=== PATIENT | male | born 1985 | race Caucasian/White ===

== ENCOUNTER 2022-06-07 20:43 | Emergency (ER) | payer MEDICAID, SELFPAY ==
--- NOTE | ~2022-06-07 | US_ITS ---
EXAMINATION: US VENOUS ULTRASOUND WITH DOPPLER LOWER EXTREMITY, LEFT CLINICAL INFORMATION: Left lower extremity edema. History of DVT. COMPARISON: None available. TECHNIQUE: Ultrasound of the deep veins is performed from the hip to the calf with compression sonography and color and pulse Doppler assessment. Spectral analysis with color-flow imaging is performed. FINDINGS: There is normal venous compression and respiratory variation and augmented flow. The visualized common femoral vein, superficial femoral vein, profunda femoral vein, popliteal vein, and the trifurcation region shows no evidence of deep venous thrombosis. There is no significant popliteal fossa cyst. If the patient's symptoms persist, followup ultrasound in 5 days 7 days might be of value to exclude proximal propagation from a non-visualized calf vein. US/US venous duplex LE LT IMPRESSION: No DVT demonstrated in the left lower extremity.
[2022-06-07 20:58] VITALS: BP 137/74; PULSE 102; RESP 18; TEMP 36.9; O2SAT 96; BMI 25.6
[2022-06-07 21:07] VITALS: BP 123/62; PULSE 100; RESP 20; TEMP 37.1; O2SAT 97
--- NOTE | 2022-06-07 21:34 | ECG_ITS ---
Test Reason : WEAK Blood Pressure : / mmHG Vent. Rate : 099 BPM Atrial Rate : 099 BPM P-R Int : 124 ms QRS Dur : 074 ms QT Int : 320 ms P-R-T Axes : 071 088 -19 degrees QTc Int : 410 ms Normal sinus rhythm Cannot rule out Inferior infarct , age undetermined Abnormal ECG No previous ECGs available Referred By: Shawn Khalil Electronically Signed By:SERGIO PALACIOS MD
--- NOTE | 2022-06-07 21:35 | ED.GENADULT ---
HPI - General Adult General Chief complaint: General Medical Stated complaint: left leg swelling Time Seen by Provider: 06/07/22 20:59 Source: patient Mode of arrival: ambulatory Limitations: no limitations History of Present Illness HPI narrative: 36-year-old male with history of fentanyl and cocaine drug abuse presents with left lower extremity swelling and discomfort. 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 For last few days he was unable to charge his prosthetic. As result, he has been walking with a stiff leg. Today he went to detox for fentanyl use. Is noted that he had left lower extremity swelling. He was sent to the emergency department for evaluation. Patient denies any fevers or chills. Pain is [id number]. No clear relieving or exacerbating features. He denies any chest pain or shortness breath. Patient does have a history of DVT following the injury. He at 1 point had an IVC filter. Patient denies any new falls, injuries, immobilization Related Data Previous Rx's Medication Instructions Recorded doxycycline hyclate 100 mg capsule 100 mg PO BID #20 caps 06/07/22 Allergies Allergy/AdvReac Type Severity Reaction Status Date / Time No Known Allergies Allergy Verified 06/07/22 21:34 [facility] Social History Social History Advance Directives: No Advance Directives Information Provided: Yes Physical Exam ED Vital Signs: Vital Signs - 24 hr 06/07/22 20:58 06/07/22 21:07 06/07/22 23:29 Temperature 98.5 F 98.7 F 99.3 F Pulse Rate 102 H 100 97 Respiratory Rate 18 20 17 Blood Pressure 137/74 123/62 119/70 Pulse Oximetry 96 97 97 Oxygen Delivery Method Room Air Room Air Room Air BMI result Body Mass Index 25.6 GEN: Well developed, no acute distress, alert, oriented HEENT: Normocephalic, atraumatic, normal external ears, nose appears normal, no oropharyngeal edema or exudates Eyes: Normal to appearance Neck: Supple, no lymphadenopathy Respiratory: Talks in complete sentences, no respiratory distress, clear to auscultation bilaterally Cardiovascular: Regular rate and rhythm, no murmurs rubs or gallops Abdomen: Soft, nontender, nondistended, no guarding, no rebound Back: No CVA tenderness Extremities: Right lower extremity amputation with prosthetic, left lower extremity 2+ pitting edema mild erythematous skin changes, nontender to palpation Neurologic: No focal neurologic deficits, cranial nerves 2-12 intact, strength is 5/5 bilaterally, Skin: No rash Course Course Course Narrative: 36-year-old male with history of drug abuse presents with left lower extremity swelling. Patient denied any chest pain or shortness of breath. Doubt PE. He does have history of DVT which is a possible diagnosis. Will obtain an ultrasound. Patient is tachycardic. Will get an EKG. The likely this is sinus tachycardia. Is not hypoxic and he is normotensive. Patient denies any significant immobilization, trauma. 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 Patient denies any withdrawal symptoms at this time. Will withhold treatment for withdraw however, patient is aware he may be able to ask for medications if need be. Reevaluation(s) Reevaluation #1: The results are in. There is no evidence DVT. Suspect mild cellulitis. Will start patient on oral antibiotics. He is tachycardic which I suspect is a component of withdrawal. I after to keep the patient in the hospital overnight pending case management. He would like to be discharged however. He does have Ms. Decision-making capacity. Poses no acute threat to self or others. Patient will receive 1 dose oral antibiotics year Time: 23:46 Medical Decision Making Medical Decision Making MDM Narrative: 36-year-old male with history of drug abuse, PE, DVT, amputation presents with left lower extremity swelling. This is concerning for DVT. However, this could also be due to mechanical disadvantage walking since his mechanical prosthesis was not charged. Will obtain an ultrasound to rule out DVT. Other possible diagnoses could include renal dysfunction, hypoalbuminemia, electrolyte abnormality, traumatic, venous insufficiency Differential Diagnosis Differential Diagnoses: The differential diagnosis associated with the presentation includes (DVTrenal dysfunction, hypoalbuminemia, electrolyte abnormality, traumatic, venous insufficiency) Left lower extremity edema Admission/Observation Consideration of admission/observation: Escalation of care including admission/observation considered Lab Data [facility] Lab Attestation statement: I reviewed the patient's lab results. 06/07/22 21:57 06/07/22 21:57 Labs: Lab Results 03/24/23 03/24/23 03/24/23 Range/Units 21:52 21:57 21:57 WBC 9.5 (4.8-10.8) X10*3/uL RBC 5.99 H (4.60-5.80) X10*6/uL Hgb 14.3 (14.0-18.0) g/dl Hct 44.9 (42.0-52.0) % MCV 75.0 L (80.0-98.0) fL MCH 23.9 L (27.0-33.0) pg MCHC 31.8 (31.0-36.0) g/dl RDW 18.1 H (11.0-16.0) % Plt Count 187 (160-400) X10*3/uL MPV 9.5 (9.4-12.4) fL Immature Gran % (Auto) 0.2 (0.0-0.4) % Neut % (Auto) 73.0 (45-73) % Lymph % (Auto) 13.0 L (20-40) % [place] % (Auto) 12.2 H (2-11) % Eos % (Auto) 1.3 (0-4) % Baso % (Auto) 0.3 (0-2) % Lymph # (Auto) 1.2 (1.2-4.9) X10*3/uL [place] # (Auto) 1.2 (0.1-1.2) X10*3/uL Eos # (Auto) 0.1 (0.0-0.4) X10*3/uL Baso # (Auto) 0.0 (0.0-0.2) X10*3/uL Abs Immat Gran (auto) 0.02 (0.00-0.03) X10*3/uL Absolute Neuts (auto) 7.0 (2.0-8.3) x10*3/uL Absolute Nucleated RBC 0.000 (0.0-0.012) X10*3/uL Nucleated RBC % (auto) 0.0 (0.0-0.2) /100WBC ESR (0-15) MM/HR Sodium 142 (135-145) mmol/L Potassium 4.6 (3.3-5.1) mmol/L Chloride 102 (96-108) mmol/L Carbon Dioxide 29 (22-29) mmol/L Anion Gap 16 (12-20) BUN 15 (9-16) mg/dL Creatinine 1.24 (0.5-1.4) mg/dL Estim Creat Clear Calc 98.4 Estimated GFR > 60 Random Glucose 104 (60-115) mg/dL Lactic Acid (0.5-2.0) mmol/L Calcium 8.8 (8.4-10.2) mg/dL Total Bilirubin 0.6 (0.0-1.0) mg/dL AST 155 H (5-37) U/L ALT 59 H (0-40) U/L Alkaline Phosphatase 102 (39-117) U/L C-Reactive Protein 5.30 H (< or = 0.50) mg/dL Total Protein 6.4 L (6.5-8.0) g/dL Albumin 3.6 (3.5-5.0) g/dL COVID-19 (STEVE) Negative (Negative) COVID-19 Clin Com See Note 06/07/22 06/07/22 Range/Units 21:57 21:57 WBC (4.8-10.8) X10*3/uL RBC (4.60-5.80) X10*6/uL Hgb (14.0-18.0) g/dl Hct (42.0-52.0) % MCV (80.0-98.0) fL MCH (27.0-33.0) pg MCHC (31.0-36.0) g/dl RDW (11.0-16.0) % Plt Count (160-400) X10*3/uL MPV (9.4-12.4) fL Immature Gran % (Auto) (0.0-0.4) % Neut % (Auto) (45-73) % Lymph % (Auto) (20-40) % [place] % (Auto) (2-11) % Eos % (Auto) (0-4) % Baso % (Auto) (0-2) % Lymph # (Auto) (1.2-4.9) X10*3/uL [place] # (Auto) (0.1-1.2) X10*3/uL Eos # (Auto) (0.0-0.4) X10*3/uL Baso # (Auto) (0.0-0.2) X10*3/uL Abs Immat Gran (auto) (0.00-0.03) X10*3/uL Absolute Neuts (auto) (2.0-8.3) x10*3/uL Absolute Nucleated RBC (0.0-0.012) X10*3/uL Nucleated RBC % (auto) (0.0-0.2) /100WBC ESR 3 (0-15) MM/HR Sodium (135-145) mmol/L Potassium (3.3-5.1) mmol/L Chloride (96-108) mmol/L Carbon Dioxide (22-29) mmol/L Anion Gap (12-20) BUN (9-16) mg/dL Creatinine (0.5-1.4) mg/dL Estim Creat Clear Calc Estimated GFR Random Glucose (60-115) mg/dL Lactic Acid 1.3 (0.5-2.0) mmol/L Calcium (8.4-10.2) mg/dL Total Bilirubin (0.0-1.0) mg/dL AST (5-37) U/L ALT (0-40) U/L Alkaline Phosphatase (39-117) U/L C-Reactive Protein (< or = 0.50) mg/dL Total Protein (6.5-8.0) g/dL Albumin (3.5-5.0) g/dL COVID-19 (STEVE) (Negative) COVID-19 Clin Com Independent Interpretation I performed an independent interpretation of an: EKG (Normal sinus rhythm heart rate 99, normal intervals, no acute ST elevations or depressions, small Q-waves noted in the inferior leads) and Ultrasound (No DVT) Radiology Impression Discussion of test interpretation with radiology: I have reviewed the radiologist's reading. ( US/US venous duplex LE LT IMPRESSION: No DVT demonstrated in the left lower extremity. 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 There is no evidence of a blood clot in her leg. It is quite possibly have early cellulitis of the left leg. We will start on oral antibiotics and sent a prescription to your pharmacy. Should you develop any concerning symptoms, please return for re-evaluation. Prescriptions: New doxycycline hyclate 100 mg capsule 100 mg PO BID Qty: 20 0RF [place]: [facility] [place] [facility]] - 5 days
[2022-06-07 22:05] LABS: MANUAL DIFF FLAG NO
[2022-06-07 22:06] LABS: Basophils Percent Auto 0.3 % (0-2); Eosinophils Absolute Auto 0.1 X10*3/uL (0.0-0.4); Eosinophils Percent Auto 1.3 % (0-4); Hematocrit 44.9 % (42.0-52.0); Hemoglobin 14.3 g/dl (14.0-18.0); Imm Gran Abs Auto 0.02 X10*3/uL (0.00-0.03); Imm Gran Pct Auto 0.2 % (0.0-0.4); Lymphocytes Absolute Auto 1.2 X10*3/uL (1.2-4.9); Mean Corpuscular HGB Conc 31.8 g/dl (31.0-36.0); Mean Corpuscular Hemoglobin 23.9 pg (27.0-33.0); Mean Platelet Volume 9.5 fL (9.4-12.4); Monocytes Absolute Auto 1.2 X10*3/uL (0.1-1.2); Monocytes Percent Auto 12.2 % (2-11); Platelet Count 187 X10*3/uL (160-400); Red Blood Count 5.99 X10*6/uL (4.60-5.80); Red Cell Distribution Width 18.1 % (11.0-16.0); White Blood Count 9.5 X10*3/uL (4.8-10.8)
[2022-06-07 22:29] LABS: Lactic Acid 1.3 mmol/L (0.5-2.0)
[2022-06-07 22:35] LABS: COVID-19 Test Negative (Negative); IDNOW Serial# 55D5AD1C
--- NOTE | 2022-06-07 22:35 | PC.NURSE ---
ultrasound at bedside.
[2022-06-07 22:43] LABS: Alanine Aminotransferase 59 U/L (0-40); Albumin Level 3.6 g/dL (3.5-5.0); Alkaline Phosphatase 102 U/L (39-117); Anion Gap 16 (12-20); Aspartate Amino Transferase 155 U/L (5-37); Bilirubin Total 0.6 mg/dL (0.0-1.0); Blood Urea Nitrogen 15 mg/dL (9-16); Calcium 8.8 mg/dL (8.4-10.2); Carbon Dioxide 29 mmol/L (22-29); Chloride 102 mmol/L (96-108); Creatinine Clr Calc Pharmacy 98.4; Estimated Glomerular Filt Rate > 60; Glucose Random 104 mg/dL (60-115); Potassium 4.6 mmol/L (3.3-5.1); Sodium 142 mmol/L (135-145); Total Protein 6.4 g/dL (6.5-8.0)
[2022-06-07 23:07] LABS: Erythrocyte Sedimentation Rate 3 MM/HR (0-15)
[2022-06-07 23:29] VITALS: BP 119/70; PULSE 97; RESP 17; TEMP 37.4; O2SAT 97
[2022-06-08] MEDS: Doxycycline Monohydrate 100 MG CAPSULE PO (00:25)
--- NOTE | 2022-06-08 00:35 | PC.NURSE ---
Pt offered social work per Dr Khalil and pt declined. Pt states that the detox facility has discharged him. Explained to pt again that he can wait until the morning for social work and and again declines.
--- NOTE | 2022-06-08 00:56 | PC.NURSE ---
Large duffle bag labeled and given to security. Pt unable to carry.
== END 2022-06-08 00:56 | disposition home or self-care (01) ==
PROVIDERS: Emergency Provider Emergency Medicine
DX: R60.0 Localized edema (principal); L03.116 Cellulitis of left lower limb; R94.31 Abnormal electrocardiogram [ECG] [EKG]; Z20.822 Contact with and (suspected) exposure to COVID-19; Z20.828 Contact with and (suspected) exposure to other viral communicable diseases; Z79.899 Other long term (current) drug therapy
CPT/HCPCS: 36415; 80053; 83605; 85025; 85652; 86140; 87635; 93005; 93971; 99284

== ENCOUNTER 2022-06-09 00:48 | Inpatient (IN) | payer MEDICAID, SELFPAY ==
--- NOTE | ~2022-06-09 | CT_ITS ---
EXAMINATION: CT FEMUR WITH CONTRAST, RIGHT CLINICAL INFORMATION: Cellulitis. Prior amputation. COMPARISON: Radiographs from earlier today TECHNIQUE: Multidetector volumetric imaging of the right lower extremity performed after administration of 85 mL of Omnipaque 350 IV contrast. Coronal and sagittal reformatted images are obtained and reviewed. This CT examination was performed using dose optimization techniques as appropriate, variously including the following: *Automated exposure control *Adjustment of mA and/or kV according to patient size (this includes techniques or standardized protocols for targeted exams where dose is matched to indication/reason for exam; i.e. extremities or head) *Use of iterative reconstruction technique DLP: 274 mGy-cm FINDINGS: Amputation of the right femur at the level of the proximal diaphysis with some heterotopic ossification at the amputation site. This is well corticated. No acute fracture. The hip is well aligned. There is no acute osseous erosion at the amputation site. The visualized right hemipelvis is intact. There is significant edema in the subcutaneous tissues in the region of the stump, extending proximally over the hip and lower abdomen. There is associated skin thickening. No soft tissue gas identified. There is no fluid collection. No significant edema seen along the deep fascial planes, although the musculature at the level of the stump is somewhat ill-defined. CT/CT femur RT w IV con IMPRESSION: 1. Significant edema in the subcutaneous tissues in the region of the stump with associated skin thickening. No soft tissue gas. No fluid collection. 2. No acute osseous abnormality. No osseous erosion at the amputation site to suggest acute osteomyelitis.
--- NOTE | ~2022-06-09 | XR_ITS ---
EXAMINATION: XR HIP, RIGHT CLINICAL INFORMATION: Stomach infection COMPARISON: None available. TECHNIQUE: Two views of the right hip. FINDINGS: Status post amputation of the right lower extremity from the proximal femoral diaphysis. There is prominent soft tissue swelling with possible gas at the stump. Heterotopic ossification of the distal aspect of the bone. No acute osseous erosions are seen. The hip is appropriately aligned. No fracture. XR/XR hip RT min 2V IMPRESSION: Status post right lower extremity amputation with prominent soft tissue swelling and possible gas at the stump. No acute osseous erosions are seen.
[2022-06-09 00:53] VITALS: BP 145/81; PULSE 98; RESP 20; TEMP 36.6; O2SAT 98; BMI 25.7
--- NOTE | 2022-06-09 01:49 | ED_ITS ---
HPI - General Adult General Chief complaint: Extremity Problem Stated complaint: Right leg infected? Time Seen by Provider: 06/09/22 01:20 Source: patient Mode of arrival: ambulatory Limitations: no limitations History of Present Illness HPI narrative: 36-year-old male with history of intravenous drug abuse, AKA presents with infection of the stump. Patient is homeless. Patient has been unable to take his prosthesis out. Today was noted to have pain, 5/10 at its worse, redness and foul smelling drainage. The pain does not radiate. There has been no new trauma. Pain is sharp and burning in nature. Symptoms are worse with ambulation. They are better with rest. He has not had no fevers or chills. Last use of drugs was this morning. Related Data Previous Rx's Medication Instructions Recorded doxycycline hyclate 100 mg capsule 100 mg PO BID #20 caps 06/07/22 doxycycline hyclate 100 mg tablet 100 mg PO BID #20 tabs 06/08/22 Allergies Allergy/AdvReac Type Severity Reaction Status Date / Time No Known Allergies Allergy Verified 06/07/22 21:34 [facility] Social History Social History Advance Directives: No Advance Directives Information Provided: Yes Physical Exam ED Vital Signs: Vital Signs - 24 hr 06/09/22 00:53 06/09/22 03:24 Temperature 98 F 98.6 F Pulse Rate 98 97 Respiratory Rate 20 18 Blood Pressure 145/81 H 120/57 L Pulse Oximetry 98 96 Oxygen Delivery Method Room Air Room Air BMI result Body Mass Index 25.7 GEN: Well developed, no acute distress, alert, oriented HEENT: Normocephalic, atraumatic, normal external ears, nose appears normal, no oropharyngeal edema or exudates Eyes: Normal to appearance Neck: Supple, no lymphadenopathy Respiratory: Talks in complete sentences, no respiratory distress, clear to auscultation bilaterally Cardiovascular: Regular rate and rhythm, no murmurs rubs or gallops Abdomen: Soft, nontender, nondistended, no guarding, no rebound Back: No CVA tenderness Extremities: No clubbing cyanosis or edema Neurologic: No focal neurologic deficits, cranial nerves 2-12 intact, strength is 5/5 bilaterally, Skin: Right AKA stump, erythematous, foul-smelling serosanguineous drainage Course Course Course Narrative: 36-year-old male presents with possible stump infection. Patient is currently homeless. Has had difficulty taking off his prosthesis. Additionally, he has had difficulty charging his prosthesis given that he is homeless. As result, he has developed at least over the last 24 hours increasing pain, redness and foul smelling drainage. Exam is consistent with a stump infection. At this point, I doubt there is osteomyelitis. Will obtain an x-ray to rule this out. Will check laboratory tests including CBC, blood cultures, lactic acid, metabolic panel. Will give patient a dose of Ancef while in the emergency department as well. Reevaluation(s) Reevaluation #1: The workup is complete at this time. I will admit the patient for stump infecti on. Patient describes mild withdrawal symptoms. He is not wanting any medications at this time. Communicated with the hospitalist. Time: 03:44 Medications Administered Discontinued Medications Generic Name Dose Route Start Last Admin Trade Name Freq PRN Reason Stop Dose Admin Cefazolin Sodium 1 gm/ Sodium 50 mls @ 100 mls/hr 06/09/22 01:48 06/09/22 03:28 Chloride IV 06/09/22 02:17 Infused ONCE ONE Infusion Procedures EJ/Peripheral Line Arm R: Time Out Performed: Yes Skin Cleansed in Sterile Fashion: Yes Size (gauge): 20 IV Secured and Dressing Applied: Yes Patient Tolerated Procedure: well and no complications Medical Decision Making Medical Decision Making [facility] Narrative: 36-year-old male presents with possible stump infection. Patient is currently homeless. Has had difficulty taking off his prosthesis. Additionally, he has had difficulty charging his prosthesis given that he is homeless. As result, he has developed at least over the last 24 hours increasing pain, redness and foul smelling drainage. Exam is consistent with a stump infection. At this point, I doubt there is osteomyelitis. Will obtain an x-ray to rule this out. Will check laboratory tests including CBC, blood cultures, lactic acid, metabolic panel. Will give patient a dose of Ancef while in the emergency department as well. Differential Diagnosis Differential Diagnoses: The differential diagnosis associated with the presentation includes (Stump infection, cellulitis, abscess, osteomyelitis) Stump infection Admission/Observation Consideration of admission/observation: Escalation of care including admission/observation considered Lab Data [facility] Lab Attestation statement: I reviewed the patient's lab results. 06/09/22 02:38 06/09/22 02:34 Labs: Lab Results 06/09/22 06/09/22 06/09/22 Range/Units 02:34 02:34 02:38 WBC 9.3 (4.8-10.8) X10*3/uL RBC 5.59 (4.60-5.80) X10*6/uL Hgb 13.3 L (14.0-18.0) g/dl Hct 41.5 L (42.0-52.0) % MCV 74.2 L (80.0-98.0) fL MCH 23.8 L (27.0-33.0) pg MCHC 32.0 (31.0-36.0) g/dl RDW 17.2 H (11.0-16.0) % Plt Count 231 (160-400) X10*3/uL MPV 8.8 L (9.4-12.4) fL Immature Gran % (Auto) 0.4 (0.0-0.4) % Neut % (Auto) 71.2 (45-73) % Lymph % (Auto) 16.0 L (20-40) % [place] % (Auto) 10.6 (2-11) % Eos % (Auto) 1.4 (0-4) % Baso % (Auto) 0.4 (0-2) % Lymph # (Auto) 1.5 (1.2-4.9) X10*3/uL [place] # (Auto) 1.0 (0.1-1.2) X10*3/uL Eos # (Auto) 0.1 (0.0-0.4) X10*3/uL Baso # (Auto) 0.0 (0.0-0.2) X10*3/uL Abs Immat Gran (auto) 0.04 H (0.00-0.03) X10*3/uL Absolute Neuts (auto) 6.6 (2.0-8.3) x10*3/uL Absolute Nucleated RBC 0.000 (0.0-0.012) X10*3/uL Nucleated RBC % (auto) 0.0 (0.0-0.2) /100WBC ESR (0-15) MM/HR Sodium 140 (135-145) mmol/L Potassium 3.9 (3.3-5.1) mmol/L Chloride 100 (96-108) mmol/L Carbon Dioxide 28 (22-29) mmol/L Anion Gap 16 (12-20) BUN 16 (9-16) mg/dL Creatinine 1.07 (0.5-1.4) mg/dL Estim Creat Clear Calc 110.9 Estimated GFR > 60 Random Glucose 123 H (60-115) mg/dL Lactic Acid 1.1 (0.5-2.0) mmol/L Calcium 9.0 (8.4-10.2) mg/dL Total Bilirubin 0.7 (0.0-1.0) mg/dL AST 117 H (5-37) U/L ALT 62 H (0-40) U/L Alkaline Phosphatase 92 (39-117) U/L C-Reactive Protein 7.99 H (< or = 0.50) mg/dL Total Protein 5.9 L (6.5-8.0) g/dL Albumin 3.6 (3.5-5.0) g/dL // Range/Units 02:39 WBC (4.8-10.8) X10*3/uL RBC (4.60-5.80) X10*6/uL Hgb (14.0-18.0) g/dl Hct (42.0-52.0) % MCV (80.0-98.0) fL MCH (27.0-33.0) pg MCHC (31.0-36.0) g/dl RDW (11.0-16.0) % Plt Count (160-400) X10*3/uL MPV (9.4-12.4) fL Immature Gran % (Auto) (0.0-0.4) % Neut % (Auto) (45-73) % Lymph % (Auto) (20-40) % [place] % (Auto) (2-11) % Eos % (Auto) (0-4) % Baso % (Auto) (0-2) % Lymph # (Auto) (1.2-4.9) X10*3/uL [place] # (Auto) (0.1-1.2) X10*3/uL Eos # (Auto) (0.0-0.4) X10*3/uL Baso # (Auto) (0.0-0.2) X10*3/uL Abs Immat Gran (auto) (0.00-0.03) X10*3/uL Absolute Neuts (auto) (2.0-8.3) x10*3/uL Absolute Nucleated RBC (0.0-0.012) X10*3/uL Nucleated RBC % (auto) (0.0-0.2) /100WBC ESR 10 (0-15) MM/HR Sodium (135-145) mmol/L Potassium (3.3-5.1) mmol/L Chloride (96-108) mmol/L Carbon Dioxide (22-29) mmol/L Anion Gap (12-20) BUN (9-16) mg/dL Creatinine (0.5-1.4) mg/dL Estim Creat Clear Calc Estimated GFR Random Glucose (60-115) mg/dL Lactic Acid (0.5-2.0) mmol/L Calcium (8.4-10.2) mg/dL Total Bilirubin (0.0-1.0) mg/dL AST (5-37) U/L ALT (0-40) U/L Alkaline Phosphatase (39-117) U/L C-Reactive Protein (< or = 0.50) mg/dL Total Protein (6.5-8.0) g/dL Albumin (3.5-5.0) g/dL Independent Interpretation I performed an independent interpretation of an: Plain X-Ray Radiology Impression Discussion of test interpretation with radiology: I have reviewed the radiologist's reading. ([address] [id number] ReportSigned Patient: Ash BaileyMR#: [id number]: [id number]:[id number]/Sex: 36 / MADM Date: 06/09/22Loc: Bria Pandey: Ordering Physician: Shawn Khalil MD Date of Service: 06/09/22 Procedure(s): XR hip RT min 2V Accession) Radiologist Impression: I independently reviewed images and agree with radiologist interpretation Tests considered The following testing was considered but not selected: CT, MRI Prescription Management I considered prescription management with: Pain Medication and Antibiotic Social Determinants Patient?s care significantly limited by Social Determinants of Health including: Inadequate housing Discharge Plan Discharge Clinical Impression: Amputation stump infection Patient Disposition: Admitted As Inpatient Prescriptions: No Action doxycycline hyclate 100 mg capsule 100 mg PO BID Qty: 20 0RF doxycycline hyclate 100 mg tablet 100 mg PO BID Qty: 20 0RF
[2022-06-09 02:46] LABS: MANUAL DIFF FLAG NO
[2022-06-09 02:51] LABS: Basophils Percent Auto 0.4 % (0-2); Eosinophils Absolute Auto 0.1 X10*3/uL (0.0-0.4); Eosinophils Percent Auto 1.4 % (0-4); Hematocrit 41.5 % (42.0-52.0); Hemoglobin 13.3 g/dl (14.0-18.0); Imm Gran Abs Auto 0.04 X10*3/uL (0.00-0.03); Imm Gran Pct Auto 0.4 % (0.0-0.4); Lymphocytes Absolute Auto 1.5 X10*3/uL (1.2-4.9); Mean Corpuscular Hemoglobin 23.8 pg (27.0-33.0); Mean Corpuscular Volume 74.2 fL (80.0-98.0); Mean Platelet Volume 8.8 fL (9.4-12.4); Monocytes Percent Auto 10.6 % (2-11); Neutrophils Absolute Auto 6.6 x10*3/uL (2.0-8.3); Neutrophils Percent Auto 71.2 % (45-73); Platelet Count 231 X10*3/uL (160-400); Red Blood Count 5.59 X10*6/uL (4.60-5.80); Red Cell Distribution Width 17.2 % (11.0-16.0); White Blood Count 9.3 X10*3/uL (4.8-10.8)
[2022-06-09 03:05] LABS: Lactic Acid 1.1 mmol/L (0.5-2.0)
[2022-06-09 03:08] LABS: Alanine Aminotransferase 62 U/L (0-40); Albumin Level 3.6 g/dL (3.5-5.0); Alkaline Phosphatase 92 U/L (39-117); Anion Gap 16 (12-20); Aspartate Amino Transferase 117 U/L (5-37); Bilirubin Total 0.7 mg/dL (0.0-1.0); Blood Urea Nitrogen 16 mg/dL (9-16); C Reactive Protein 7.99 mg/dL (< or = 0.50); Carbon Dioxide 28 mmol/L (22-29); Chloride 100 mmol/L (96-108); Creatinine Clr Calc Pharmacy 110.9; Estimated Glomerular Filt Rate > 60; Glucose Random 123 mg/dL (60-115); Potassium 3.9 mmol/L (3.3-5.1); Sodium 140 mmol/L (135-145); Total Protein 5.9 g/dL (6.5-8.0)
[2022-06-09 03:24] VITALS: BP 120/57; PULSE 97; RESP 18; TEMP 37; O2SAT 96
[2022-06-09 03:29] LABS: Erythrocyte Sedimentation Rate 10 MM/HR (0-15)
--- NOTE | 2022-06-09 03:44 | PC.NURSE ---
Pt. is resting in bed, no apparent distress. Will continue to monitor.
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
[2022-06-09] MEDS: Enoxaparin Sodium 40 MG/0.4 ML SYRINGE SUBCUT (04:22)
[2022-06-09] MEDS: Lactated Ringers 1,000 ML 100 ML IVCONT (04:22)
[2022-06-09] MEDS: vancomycin HCL 1,500 MG in 0.9 % Sodium Chloride 500 ML 333.33 MG IV (04:23)
[2022-06-09] MEDS: iohexoL 350 MG/ML 100 ML INFUS..BTL 85 ML IV (04:23)
[2022-06-09 05:54] LABS: COVID-19 Test Negative (Negative); IDNOW Serial# 6674DD1D
[2022-06-09 06:11] LABS: Anion Gap 15 (12-20); Blood Urea Nitrogen 15 mg/dL (9-16); Calcium 8.2 mg/dL (8.4-10.2); Carbon Dioxide 25 mmol/L (22-29); Chloride 101 mmol/L (96-108); Creatinine Clr Calc Pharmacy 118.7; Estimated Glomerular Filt Rate > 60; Glucose Random 106 mg/dL (60-115); Potassium 3.7 mmol/L (3.3-5.1); Sodium 137 mmol/L (135-145)
[2022-06-09 06:12] VITALS: BP 122/74; PULSE 92; RESP 16; TEMP 36.9; O2SAT 97
--- NOTE | 2022-06-09 06:54 | PHA.PROG ---
Admission Date/Time: June 09, 2022 03:46 Indication: SKIN/STRUCTURE INFECTION Weight in k.718 kg Adjusted body weight in K.607 Steen body weight in K.2 Obesity Dosing Indication % IBW: 25.7 Serum Creatinine - Last 168 Hours 06/09/22 06/09/22 02:34 05:23 Creatinine 1.07 1.00 Estimated CrCl and GFR - Last 168 Hours 06/09/22 06/09/22 02:34 05:23 Estim Creat Clear Calc 110.9 118.7 Estimated GFR > 60 > 60 Vancomycin Loading Dose: 1500 MG Current Vancomycin Dosing Regimen: 1250 Q12 HOURS Vancomycin Monitoring using AUC goal of 400 - 600 range with trough as surrogate marker: EXPECT AUC OF 453 AFTER 4TH DOSE Date and Time for next Vancomycin Level to be drawn: 06/10 @1700 Pharmacist Comments on Vancomycin Plan: PT RENAL FUNCTION IS GOOD WITH SCR 1.00 TODAY. PT IS NOT OBESE. HE IS POST AMPUTATION WITH INFECTION OF AMPUTATION SITE. CONTINUE TO MONITOR SCR DAILY AND TROUGH BEFORE 4TH DOSE. Vancomycin dosing will take advantage of VISup as a clinical decision support tool that uses Bayesian modeling to calculate individual patient's pharmacokinetic parameters and forecast the patient's drug concentration time course with the target goal AUC 24 range of 400 - 600 mg/L/hr.
--- NOTE | 2022-06-09 07:18 | PHA.MEDREC ---
Pharmacy Consult ? Medication Reconciliation RN has completed the medication reconciliation, pharmacy reviewed.
--- NOTE | 2022-06-09 07:23 | PC.NURSE ---
Resumed care of patient this morning, he is resting comfortably in bed, denies pain. Report given to inpatient floor, transport to bring patient up shortly. Pt made aware of plan, and is in agreement. LR running per order in AC IV. He is a/ox4
[2022-06-09 07:59] VITALS: BP 141/64; PULSE 73; RESP 18; TEMP 35.5; O2SAT 99
[2022-06-09 09:15] LABS: Basophils Percent Auto 0.4 % (0-2); Eosinophils Absolute Auto 0.2 X10*3/uL (0.0-0.4); Eosinophils Percent Auto 2.3 % (0-4); Hematocrit 41.2 % (42.0-52.0); Imm Gran Abs Auto 0.03 X10*3/uL (0.00-0.03); Imm Gran Pct Auto 0.4 % (0.0-0.4); Lymphocytes Absolute Auto 1.4 X10*3/uL (1.2-4.9); Lymphocytes Percent Auto 18.5 % (20-40); Mean Corpuscular HGB Conc 31.6 g/dl (31.0-36.0); Mean Platelet Volume 8.9 fL (9.4-12.4); Monocytes Absolute Auto 0.8 X10*3/uL (0.1-1.2); Monocytes Percent Auto 10.4 % (2-11); Neutrophils Absolute Auto 5.3 x10*3/uL (2.0-8.3); Platelet Count 206 X10*3/uL (160-400); Red Blood Count 5.42 X10*6/uL (4.60-5.80); Red Cell Distribution Width 17.3 % (11.0-16.0); White Blood Count 7.8 X10*3/uL (4.8-10.8)
[2022-06-09 10:54] LABS: MANUAL DIFF FLAG NO
--- NOTE | 2022-06-09 11:54 | PM.EVENT ---
Event Note Date of Service: 06/09/22 Event Note: This patient is seen and examined hospitalist team this morning. stamp area pain/erythema . Lab reviewed Vitals stable , no fevers Physical exam : right aka -stamp-mild erythema and pain . No discharge or fluctuation and assessment and plan coordinated in APCs note, Agree with the plan in addition: right aka stamp cellulitis: continue iv antbiotics utox addiction consult lft's elevation? multifactorial: improving added hepatitis serologies. Time Spent With Patient Time: Total time managing care of this patient today ____ minutes.
[2022-06-09 12:51] LABS: Alanine Aminotransferase 54 U/L (0-40); Albumin Level 3.2 g/dL (3.5-5.0); Alkaline Phosphatase 85 U/L (39-117); Aspartate Amino Transferase 105 U/L (5-37); Bilirubin Direct 0.2 mg/dL (0.0-0.5); Bilirubin Total 0.7 mg/dL (0.0-1.0); Total Protein 5.4 g/dL (6.5-8.0)
[2022-06-09 15:26] VITALS: BP 130/66; PULSE 87; RESP 17; TEMP 36.1; O2SAT 98
[2022-06-09] MEDS: 0.9 % Sodium Chloride Flush 3 ML SYRINGE IVFLUSH (18:06)
[2022-06-09 20:00] VITALS: BP 136/79; PULSE 75; RESP 16; TEMP 36.4; O2SAT 96
--- NOTE | 2022-06-09 20:38 | PC.NURSE ---
Unable to insert IV,pt has no access,dr. Finney notified
--- NOTE | 2022-06-09 22:19 | PC.NURSE ---
ED staff unable to obtain IV access,ICU staff unable to come up to try,Nursing Wheel Assembler able to start IV now ,will administer IV Vanco as ordered
[2022-06-09] MEDS: vancomycin HCL 1,250 MG in 0.9 % Sodium Chloride 250 ML 166.67 MG IV (22:38)
[2022-06-10 03:59] VITALS: BP 138/79; PULSE 88; RESP 18; TEMP 36.4; O2SAT 97
[2022-06-10 04:31] LABS: HBS Num1 > 1000.00 mIU/mL (0-7.99); Hepatitis A Antibody IgM 0.19 Index (0-0.79); Hepatitis B Core Antibody Nonreactive (Nonreactive); Hepatitis B Surface Antigen Negative (Negative); ~HepC Num1 6.65 S/CO (0.00-0.79); ~Hepatitis A Antibody IgM Nonreactive (Nonreactive); ~Hepatitis B Surface Antibody REACTIVE (Nonreactive); ~Hepatitis C Antibody Reactive (Nonreactive)
[2022-06-10] MEDS: Enoxaparin Sodium 40 MG/0.4 ML SYRINGE SUBCUT (05:10)
[2022-06-10 07:04] VITALS: BP 148/80; PULSE 77; RESP 16; TEMP 36.6; O2SAT 99
[2022-06-10 08:18] LABS: Hematocrit 45.6 % (42.0-52.0); Hemoglobin 14.2 g/dl (14.0-18.0); Mean Corpuscular HGB Conc 31.1 g/dl (31.0-36.0); Mean Corpuscular Hemoglobin 23.7 pg (27.0-33.0); Mean Corpuscular Volume 76.3 fL (80.0-98.0); Mean Platelet Volume 9.2 fL (9.4-12.4); Platelet Count 225 X10*3/uL (160-400); Red Blood Count 5.98 X10*6/uL (4.60-5.80); White Blood Count 5.8 X10*3/uL (4.8-10.8)
[2022-06-10 08:47] LABS: Creatinine Clr Calc Pharmacy 130.4; Estimated Glomerular Filt Rate > 60
[2022-06-10 08:48] LABS: Anion Gap 12 (12-20); Blood Urea Nitrogen 12 mg/dL (9-16); Calcium 8.2 mg/dL (8.4-10.2); Carbon Dioxide 24 mmol/L (22-29); Chloride 106 mmol/L (96-108); Creatinine Clr Calc Pharmacy 133.4; Estimated Glomerular Filt Rate > 60; Glucose Random 91 mg/dL (60-115); Potassium 4.2 mmol/L (3.3-5.1); Sodium 138 mmol/L (135-145)
--- NOTE | 2022-06-10 09:51 | MHC.CLN ---
NUTRITION CONSULT FOR SKIN INTEGRITY. CELLULITIS TO Odalis PAGAN STUMP. SUSPECT HX POOR NUTRITION DUE TO IV DRUG ABUSE AND HOMELESS. ADDING ENSURE BID TO INCREASE NUTRITIONAL INTAKE. PROVIDES 700 KCALS, 40 G PROTEIN.
[2022-06-10] MEDS: vancomycin HCL 1,250 MG in 0.9 % Sodium Chloride 250 ML 166.67 MG IV (11:08)
[2022-06-10] MEDS: 0.9 % Sodium Chloride Flush 3 ML SYRINGE IVFLUSH (11:09)
--- NOTE | 2022-06-10 11:14 | HO.PM.IMPN ---
Subjective Subjective Date of Service: 06/10/22 Physical Exam Vital Signs: Vital Signs: Last Vital Signs Temp 98 F 06/10/22 07:04 Pulse 77 06/10/22 07:04 Resp 16 06/10/22 07:04 BP 148/80 H 06/10/22 07:04 Pulse Ox 99 06/10/22 07:04 O2 Del Method Room Air 06/10/22 07:04 BMI result Body Mass Index 25.7 Objective Data Active Medications Acetaminophen (Acetaminophen 325 Mg Tablet) 650 mg PO Q6H PRN PRN Reason: Pain, Mild (Pain Scale 1-3) Docusate Sodium (Docusate Sodium 100 Mg Capsule) 100 mg PO DAILY PRN PRN Reason: Constipation Enoxaparin Sodium (Enoxaparin Sodium 40 Mg/0.4 Ml Syringe) 40 mg SUBCUT Q24H [facility] Last Admin: 06/10/22 05:10 Dose: 40 mg Documented By: AIDAN Vancomycin HCl 1,250 mg/ (Sodium Chloride) 250 mls @ 166.667 mls/hr IV Q12H [facility] Last Admin: 06/10/22 11:08 Dose: 166.67 mls/hr Documented By: ANDREW Ondansetron HCl (Ondansetron Hcl 4 Mg/2 Ml Vial) 4 mg IVPUSH Q8H PRN PRN Reason: Nausea and Vomiting Pharmacy Consult (Consult Rx Vancomycin Dosing) 1 each MISCELLANE DAILY PRN PRN Reason: Consult order Sodium Chloride (0.9 % Sodium Chloride Flush 3 Ml Syringe) 3 ml IVFLUSH QSHIFT [facility] Last Admin: 06/10/22 11:09 Dose: 3 ml Documented By: ANDREW Labs 06/10/22 07:50 06/10/22 07:50 Labs: Laboratory Results - last 24 hr 06/09/22 06/09/22 06/09/22 05:23 05:23 08:54 MCV 76.0 L MCH 24.0 L MCHC 31.6 RDW 17.3 H Plt Count 206 MPV 8.9 L Immature Gran % (Auto) 0.4 Neut % (Auto) 68.0 Lymph % (Auto) 18.5 L [place] % (Auto) 10.4 Eos % (Auto) 2.3 Baso % (Auto) 0.4 Lymph # (Auto) 1.4 [place] # (Auto) 0.8 Eos # (Auto) 0.2 Baso # (Auto) 0.0 Abs Immat Gran (auto) 0.03 Absolute Neuts (auto) 5.3 Absolute Nucleated RBC 0.000 Nucleated RBC % (auto) 0.0 Anion Gap Estim Creat Clear Calc Estimated GFR Random Glucose Calcium Total Bilirubin 0.7 Direct Bilirubin 0.2 AST 105 H ALT 54 H Alkaline Phosphatase 85 Total Protein 5.4 L Albumin 3.2 L Hepatitis A IgM Ab Nonreactive Hep Bs Antigen Negative Hep Bs Antibody REACTIVE Hep B Core Total Ab Nonreactive Hepatitis C Ab (EIA) Reactive H 06/10/22 06/10/22 06/10/22 07:50 07:50 07:50 MCV 76.3 L MCH 23.7 L MCHC 31.1 RDW 18.0 H Plt Count 225 MPV 9.2 L Immature Gran % (Auto) Neut % (Auto) Lymph % (Auto) [place] % (Auto) Eos % (Auto) Baso % (Auto) Lymph # (Auto) [place] # (Auto) Eos # (Auto) Baso # (Auto) Abs Immat Gran (auto) Absolute Neuts (auto) Absolute Nucleated RBC 0.000 Nucleated RBC % (auto) 0.0 Anion Gap 12 Estim Creat Clear Calc 130.4 133.4 Estimated GFR > 60 > 60 Random Glucose 91 Calcium 8.2 L Total Bilirubin Direct Bilirubin AST ALT Alkaline Phosphatase Total Protein Albumin Hepatitis A IgM Ab Hep Bs Antigen Hep Bs Antibody Hep B Core Total Ab Hepatitis C Ab (EIA) Microbiology Microbiology Results: Microbiology 06/09/22 02:34 Blood Culture - Preliminary Blood - Venous No growth after 24 hours. 06/09/22 02:34 Blood Culture - Preliminary Blood - Venous No growth after 24 hours. Assessment and Plan (1) Cellulitis of lower extremity: Status: Acute Plan 36-year-old male with past medical history of IV drug use presents to the hospital with cellulitis of lower extremities Cellulitis of right stump/amputation stump infection. improving no drainage, no fluid collection evidence of edema on CT scan with no evidence of fluid collection/abscess continue IV antibiotics neg cultures IV drug use, Fentanyl feeling withdrawal symptoms addiction med consult pending DVT prophylaxis:? Lovenox Attending Dr. Cote continue hospital stay for tx of cellulitis Time Spent With Patient Time: Total time managing care of this patient today ____ minutes. Quality Stroke Does the patient have a stroke diagnosis?: No VTE Prior VTE?: No VTE Risk Level:: Medical - moderate - high VTE Device Contraindication: Treatment Not Indicated VTE Drug Contraindication: N/A - Med Ordered
--- NOTE | 2022-06-10 12:39 | MHC.CM.PN ---
PLAN IS FOR DC TODAY POSSIBLE BED AT [facility]. ADDICTION MED SAW PATIENT. CM AWAITING NOTE
[2022-06-10] MEDS: LORazepam 2 MG/ML VIAL 0.5 MG IVPUSH (13:52)
[2022-06-10] MEDS: methADONE HCl 20 MG/2 ML ORAL.CONC 25 MG PO (13:53)
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
[2022-06-10 15:44] VITALS: BP 137/82; PULSE 72; RESP 18; TEMP 36.2; O2SAT 98
[2022-06-10] MEDS: methADONE HCl 20 MG/2 ML ORAL.CONC 10 MG PO (18:20)
[2022-06-10] MEDS: LORazepam 2 MG/ML VIAL 1 MG IVPUSH ×2 (18:23→23:17)
[2022-06-10 19:29] VITALS: BP 150/77; PULSE 88; RESP 18; TEMP 36.9; O2SAT 97
--- NOTE | 2022-06-10 20:09 | PC.NURSE ---
Assumed care at 0700. Alert and oriented patient, reports struggling with homelessness and with IV drug use relapse with IV fentanyl, reports IVDU in many sites over body, denies sharing needles, reports having source for clean needles, reports wanting to stop using and start methadone, believes he will have success attending [facility] after discharge, reports withdrawal symptoms of anxiety, diaphoresis, malaise, MOTORCYCLE ASSEMBLER and addiction nurse notified, addiction med consulted, in to see patient, started methadone 25 mg ONE TIME DOSE, and one time IVP ativan 0.5 mg with good effect, then 4 hrs later patient sith same symptoms and seeking elopment, and MOTORCYCLE ASSEMBLER notified and new ONE TIME dose of 10 mg methadone as well as 1 mg IVP PRN ativan ordered and adminitered with good effect. Order for PO oxycodone patient questioned and discussed with MOTORCYCLE ASSEMBLER patient does not want opioid pain analgesia. Patient alert and oriented, ambulates with prosthesis to R AKA and uses wheelchair, able to shower and ambulate to BR this shift .
--- NOTE | 2022-06-10 23:11 | PC.NURSE ---
Lab unable to draw vanco trough, Dr. Gan notified. OK to give the vanco now and defer to AM for vanco trough.
--- NOTE | 2022-06-11 01:19 | PC.NURSE ---
No IV access. Refusing anymore attempts. Dr. Gan notified. IV vanco not given.
[2022-06-11 04:00] VITALS: BP 140/72; PULSE 75; RESP 18; TEMP 36.6; O2SAT 99
[2022-06-11] MEDS: Enoxaparin Sodium 40 MG/0.4 ML SYRINGE SUBCUT (05:04)
[2022-06-11 07:37] VITALS: BP 148/89; PULSE 89; RESP 18; TEMP 36.8; O2SAT 97
[2022-06-11 07:59] LABS: Creatinine Clr Calc Pharmacy 123.6; Estimated Glomerular Filt Rate > 60
[2022-06-11] MEDS: methADONE HCl 20 MG/2 ML ORAL.CONC 30 MG PO (08:56)
--- NOTE | 2022-06-11 10:13 | MHC.RECOVRN ---
Met with pt on 06/10 after consult placed to Addiction Medicine for fentanyl addiction. Pt laying in bed, awake, alert, easily engages in conversation. Pt appears restless, diaphoretic, reports loose stool, anxiety. Pt requesting methadone to address withdrawal symptoms. Pt reports using heroin, 3 bundles daily, IV, since February 06, 2022. Prior to that, pt had been in recovery x 1 year utilizing [facility] and meetings. Pt relocated to the area from [place] approx 1 week ago. Pt admitted to [facility] for cellulitis and IV antibiotics. Plan for 06/10- 25 mg methadone and 10 mg prn in the evening Plan for 06/11 30 mg methadone in am Pt is medically cleared to discharge and would like to go to [facility]. Spoke with María at [facility], pt accepted to [facility] for 1PM. Will be transported via Lyft. Provider aware.
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
--- NOTE | 2022-06-11 11:05 | MHC.CM.PN ---
Patient is discharged today. Addiction Medicine was consulted. The Recovery nurse has arranged for post hospital care. He is accepted @ [facility] . He will transport via Lyft at 1pm today.
== END 2022-06-11 13:54 | DRG 349 ==
LOC: HO.ED 03:44 → HO.EDOVER 04:31 → HO.S3 06:33
PROVIDERS: Internal Medicine; Admitting Provider Internal Medicine; Emergency Provider Emergency Medicine; Visit Provider Nurse Practitioner Acute Care
DX: T87.44 Infection of amputation stump, left lower extremity (principal); L03.115 Cellulitis of right lower limb; Z59.02 Unsheltered homelessness; F11.10 Opioid abuse, uncomplicated; Y83.5 Amputation of limb(s) as the cause of abnormal reaction of the patient, or of later complication, without mention of misadventure at the time of the procedure; Z20.822 Contact with and (suspected) exposure to COVID-19
CPT/HCPCS: 36415; 73502; 73701; 80048; 80053; 80076; 82565; 83605; 85025; 85027; 85652; 86140; 86704; 86706; 86709; 86803; 87040; 87340; 87635; 99285; J0690; J1650; J2060; J3371; Q9967

== ENCOUNTER 2022-08-12 12:43 | Emergency (ER) | payer MEDICAID, SELFPAY ==
[2022-08-12 12:49] VITALS: BP 150/78; PULSE 97; RESP 18; TEMP 36.6; O2SAT 98; BMI 24.5
--- NOTE | 2022-08-12 12:53 | ECG_ITS ---
Test Reason : dizziness Blood Pressure : / mmHG Vent. Rate : 094 BPM Atrial Rate : 094 BPM P-R Int : 126 ms QRS Dur : 088 ms QT Int : 358 ms P-R-T Axes : 069 076 008 degrees QTc Int : 447 ms Normal sinus rhythm with sinus arrhythmia Normal ECG When compared with ECG of 07-JUN-2022 21:46, No significant change was found Referred By: Vin Feliz Electronically Signed By:SERGIO PALACIOS MD
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
[2022-08-12 12:57] LABS: Glucose, Whole Blood 116 mg/dL (60-115)
[2022-08-12 13:09] LABS: MANUAL DIFF FLAG NO
[2022-08-12 13:10] LABS: Basophils Percent Auto 0.5 % (0-2); Eosinophils Absolute Auto 0.1 X10*3/uL (0.0-0.4); Eosinophils Percent Auto 0.8 % (0-4); Hematocrit 45.3 % (42.0-52.0); Hemoglobin 14.6 g/dl (14.0-18.0); Imm Gran Abs Auto 0.02 X10*3/uL (0.00-0.03); Imm Gran Pct Auto 0.3 % (0.0-0.4); Lymphocytes Absolute Auto 1.2 X10*3/uL (1.2-4.9); Lymphocytes Percent Auto 19.1 % (20-40); Mean Corpuscular HGB Conc 32.2 g/dl (31.0-36.0); Mean Corpuscular Hemoglobin 25.9 pg (27.0-33.0); Mean Corpuscular Volume 80.5 fL (80.0-98.0); Mean Platelet Volume 9.2 fL (9.4-12.4); Monocytes Absolute Auto 0.4 X10*3/uL (0.1-1.2); Monocytes Percent Auto 6.4 % (2-11); Neutrophils Absolute Auto 4.7 x10*3/uL (2.0-8.3); Neutrophils Percent Auto 72.9 % (45-73); Platelet Count 215 X10*3/uL (160-400); Red Blood Count 5.63 X10*6/uL (4.60-5.80); Red Cell Distribution Width 15.3 % (11.0-16.0); White Blood Count 6.4 X10*3/uL (4.8-10.8)
[2022-08-12 13:16] LABS: INTERNATIONAL NORM RATIO 1.4 (0.9-1.1); Prothrombin Time 16.8 SEC (10.0-13.1)
[2022-08-12 13:19] LABS: Partial Thromboplastin Time 28.8 SEC (26.0-36.4)
[2022-08-12 13:37] LABS: Alanine Aminotransferase 60 U/L (0-40); Albumin Level 4.1 g/dL (3.5-5.0); Alkaline Phosphatase 66 U/L (39-117); Anion Gap 16 (12-20); Aspartate Amino Transferase 85 U/L (5-37); Bilirubin Total 0.5 mg/dL (0.0-1.0); Blood Urea Nitrogen 16 mg/dL (9-16); Calcium 9.1 mg/dL (8.4-10.2); Carbon Dioxide 30 mmol/L (22-29); Chloride 103 mmol/L (96-108); Creatinine Clr Calc Pharmacy 89.7; Estimated Glomerular Filt Rate 59; Glucose Random 125 mg/dL (60-115); Potassium 3.8 mmol/L (3.3-5.1); Sodium 145 mmol/L (135-145); Total Protein 6.5 g/dL (6.5-8.0)
--- NOTE | 2022-08-12 14:00 | PC.NURSE ---
pt difficult stick, 3 unsuccessful attempts to insert iv. 20g iv inserted RAC via ultrasound guidance. pt tolerated well.
[2022-08-12] MEDS: 0.9 % Sodium Chloride 1,000 ML 999 ML IV ×3 (14:06→18:14)
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
[2022-08-12 15:50] VITALS: BP 107/43; PULSE 50; RESP 8; TEMP 36.4; O2SAT 97
--- NOTE | 2022-08-12 16:37 | MHC.RECOVSUP ---
Bed search still in process, [facility] Joy is taking over. Provider is aware.
--- NOTE | 2022-08-12 17:02 | MHC.RECOVSUP ---
? Reason for consult Recovery Support o Current location: ED04 o Identified substance use concern: heroin - Seeking ATS (detox) - Support ? Intervention: o ATS bed search Stated 430 still in process o Community resources provided o Harm reduction discussion ? Plan: o Patient to follow up with HF after discharge ? Additional information: Client seeking help getting into a ATS... Patient stated that he would love to go somewhere far from here.. Patient stated that he had a bed at the [facility] in [facility] I called the center but due to patient missing his intake on Friday Pa[facility] was put back on the waiting list... I call every detox on the list near and far but no bed at the moment.
[2022-08-12 17:51] LABS: Appearance Urine Clear; Color Urine Dark Yellow; Glucose Urine UA Negative (Negative); Leukocyte Esterase Urine Negative (Negative); Nitrite Urine Negative (Negative); Specific Gravity - Urine >= 1.030 (1.005-1.025); UMIC TRIGGER UACC YES; Urine Blood Negative (Negative); Urine Ketones Trace mg/dL (Negative); Urine Protein 30 (1+) mg/dL (Neg-Trace)
[2022-08-12 17:53] LABS: Bacteria Urine None Seen (None Seen); Hyaline Casts Urine 0-2 /LPF (0-2); RBC Urine 0-2 /HPF (0-2); Squamous Epithelial Cell Urine 0-2 /HPF (0-2); WBC Urine 0-5 /HPF (0-5)
--- NOTE | 2022-08-12 18:03 | PC.NURSE ---
pt's HR 41-47, pt continues to c/o of dizziness, denies headache. iv fluids given, labs drawn as documented. pt seen by [employer] Operator. LOIS Rios at bedside.
[2022-08-12 18:08] LABS: Amphetamine Screen Urine Not Detected (Not Detect); Barbiturates, Urine Not Detected (Not Detect); Benzodiazepines Screen Urine Not Detected (Not Detect); Cannabinoid Screen Urine Not Detected (Not Detect); Cocaine Screen Urine POSITIVE (Not Detect); Fentanyl, urine POSITIVE (Not Detect); Opiate Screen Urine POSITIVE (Not Detect); Phencyclidine Screen Urine Not Detected (Not Detect)
[2022-08-12 19:45] VITALS: BP 101/49; PULSE 47; RESP 12; TEMP 36.4; O2SAT 98
[2022-08-12 22:12] VITALS: BP 97/51; PULSE 43; RESP 14; TEMP 36.8; O2SAT 97
== END 2022-08-12 22:54 | disposition home or self-care (01) ==
PROVIDERS: Physician Assistant; Emergency Provider Emergency Medicine
DX: M62.82 Rhabdomyolysis (principal); R42 Dizziness and giddiness; I49.8 Other specified cardiac arrhythmias; F14.90 Cocaine use, unspecified, uncomplicated; Z79.899 Other long term (current) drug therapy
CPT/HCPCS: 36415; 80053; 80307; 81001; 82550; 82947; 84484; 85025; 85610; 85730; 93005; 96360; 96361; 99285

== ENCOUNTER 2022-08-19 18:35 | Emergency (ER) | payer MEDICAID, SELFPAY ==
[2022-08-19 19:01] VITALS: BP 190/93; PULSE 104; O2SAT 97
== END 2022-08-19 20:47 | disposition left against medical advice (07) ==
PROVIDERS: Emergency Provider Emergency Medicine
DX: F19.10 Other psychoactive substance abuse, uncomplicated (principal)

== ENCOUNTER 2022-08-21 01:20 | Emergency (ER) | payer MEDICAID, SELFPAY ==
--- NOTE | 2022-08-21 | ECG_ITS ---
Test Reason : SYNCOPE Blood Pressure : / mmHG Vent. Rate : 041 BPM Atrial Rate : 041 BPM P-R Int : 130 ms QRS Dur : 086 ms QT Int : 516 ms P-R-T Axes : 081 076 046 degrees QTc Int : 425 ms Marked sinus bradycardia with Premature supraventricular complexes Nonspecific ST and T wave abnormality Abnormal ECG When compared with ECG of 12-AUG-2022 12:53, Premature supraventricular complexes are now Present Vent. rate has decreased BY 53 BPM T wave inversion now evident in Anterior leads Referred By: Generic ED Physician Electronically Signed By:Riccardo Muñoz
[2022-08-21 01:22] VITALS: BP 132/74; PULSE 44; TEMP 36.4; O2SAT 100; BMI 25.0
[2022-08-21 02:19] LABS: Basophils Percent Auto 0.7 % (0-2); Eosinophils Absolute Auto 0.1 X10*3/uL (0.0-0.4); Eosinophils Percent Auto 1.5 % (0-4); Hemoglobin 14.7 g/dl (14.0-18.0); Imm Gran Abs Auto 0.01 X10*3/uL (0.00-0.03); Imm Gran Pct Auto 0.2 % (0.0-0.4); Lymphocytes Absolute Auto 1.4 X10*3/uL (1.2-4.9); Lymphocytes Percent Auto 25.7 % (20-40); MANUAL DIFF FLAG NO; Mean Corpuscular Hemoglobin 25.2 pg (27.0-33.0); Mean Corpuscular Volume 78.9 fL (80.0-98.0); Mean Platelet Volume 9.2 fL (9.4-12.4); Monocytes Absolute Auto 0.7 X10*3/uL (0.1-1.2); Monocytes Percent Auto 12.7 % (2-11); Neutrophils Absolute Auto 3.2 x10*3/uL (2.0-8.3); Neutrophils Percent Auto 59.2 % (45-73); Platelet Count 182 X10*3/uL (160-400); Red Blood Count 5.83 X10*6/uL (4.60-5.80); Red Cell Distribution Width 15.4 % (11.0-16.0); White Blood Count 5.5 X10*3/uL (4.8-10.8)
[2022-08-21 02:39] LABS: Alanine Aminotransferase 75 U/L (0-40); Albumin Level 3.8 g/dL (3.5-5.0); Alkaline Phosphatase 83 U/L (39-117); Anion Gap 13 (12-20); Aspartate Amino Transferase 100 U/L (5-37); Bilirubin Total 0.4 mg/dL (0.0-1.0); Blood Urea Nitrogen 14 mg/dL (9-16); Calcium 9.1 mg/dL (8.4-10.2); Carbon Dioxide 27 mmol/L (22-29); Chloride 106 mmol/L (96-108); Creatinine Clr Calc Pharmacy 116.2; Estimated Glomerular Filt Rate > 60; Glucose Random 80 mg/dL (60-115); Potassium 4.4 mmol/L (3.3-5.1); Sodium 142 mmol/L (135-145); Total Protein 6.4 g/dL (6.5-8.0)
[2022-08-21 05:35] VITALS: BP 103/60; PULSE 46; RESP 16; TEMP 36.3; O2SAT 97
--- NOTE | 2022-08-21 06:20 | PC.NURSE ---
Multiple attempts to place IV line. Patient in pain, and refused additional attempts. State he is going through withdrawal from opiates and is considering leaving AMA. Has increased sensitivity to pain currently. This RN notified provider
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
[2022-08-21 07:42] LABS: Troponin-I High Sensitivity < 2.7 ng/L (<3.5-35.0)
[2022-08-21] MEDS: 0.9 % Sodium Chloride 1,000 ML 999 ML IV ×2 (10:26→11:48)
[2022-08-21 10:31] VITALS: BP 109/55; PULSE 52; RESP 14; TEMP 36.5; O2SAT 97
[2022-08-21 11:05] LABS: Troponin-I High Sensitivity < 2.7 ng/L (<3.5-35.0)
[2022-08-21 14:28] LABS: Anion Gap 9 (12-20); Blood Urea Nitrogen 13 mg/dL (9-16); Calcium 8.4 mg/dL (8.4-10.2); Carbon Dioxide 27 mmol/L (22-29); Chloride 108 mmol/L (96-108); Creatinine Clr Calc Pharmacy 140.2; Estimated Glomerular Filt Rate > 60; Glucose Random 94 mg/dL (60-115); Potassium 4.3 mmol/L (3.3-5.1); Sodium 140 mmol/L (135-145)
--- NOTE | 2022-08-21 15:42 | MHC.RECOVRN ---
Checked on pt x3 throughout the day, pt sleeping each time. Did not appear to be in withdrawal or uncomfortable.
== END 2022-08-21 14:36 | disposition left against medical advice (07) ==
PROVIDERS: Registered Nurse Emergency; Emergency Provider Emergency Medicine Emergency Medical Services
DX: R74.8 Abnormal levels of other serum enzymes (principal); M79.672 Pain in left foot; R00.1 Bradycardia, unspecified; F19.10 Other psychoactive substance abuse, uncomplicated; Z89.611 Acquired absence of right leg above knee
CPT/HCPCS: 36415; 80048; 80053; 82550; 84484; 85025; 93005; 96360; 96361; 99285

== ENCOUNTER 2022-08-26 15:30 | Inpatient (IN) | payer MEDICAID, OTHER, SELFPAY ==
[2022-08-26 15:49] VITALS: BP 130/67; PULSE 55; RESP 18; TEMP 36.4; O2SAT 96; BMI 23.7
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
--- NOTE | 2022-08-26 15:52 | ECG_ITS ---
Test Reason : general medical Blood Pressure : / mmHG Vent. Rate : 057 BPM Atrial Rate : 057 BPM P-R Int : 132 ms QRS Dur : 080 ms QT Int : 458 ms P-R-T Axes : 071 083 039 degrees QTc Int : 445 ms Sinus bradycardia Nonspecific ST and T wave abnormality Abnormal ECG When compared with ECG of 21-AUG-2022 05:32, Nonspecific T wave abnormality, worse in Lateral leads Referred By: Dory Young Electronically Signed By:SERGIO PALACIOS MD
--- NOTE | 2022-08-26 16:37 | PHA.MEDREC ---
Pharmacy Consult ? Medication Reconciliation Pharmacy has completed the medication reconciliation. Spoke to patient to confirm meds. Patient no longer takes gabapentin, only bupropion 300mg XR.
--- NOTE | 2022-08-26 16:49 | PC.NURSE ---
pt AOX4, reporting SI with plan. pt attempted top use the rest of the fentanyl that he had. 1:[address], labs drawn and EKG done. awaiting urine sample. pt changed over to hospital attire.
[2022-08-26 16:57] LABS: Ethanol < 10 mg/dL
[2022-08-26 16:58] LABS: Basophils Absolute Auto 0.1 X10*3/uL (0.0-0.2); Basophils Percent Auto 0.8 % (0-2); Eosinophils Absolute Auto 0.1 X10*3/uL (0.0-0.4); Eosinophils Percent Auto 1.4 % (0-4); Hematocrit 46.2 % (42.0-52.0); Hemoglobin 14.7 g/dl (14.0-18.0); Imm Gran Abs Auto 0.02 X10*3/uL (0.00-0.03); Imm Gran Pct Auto 0.3 % (0.0-0.4); Lymphocytes Absolute Auto 1.4 X10*3/uL (1.2-4.9); Lymphocytes Percent Auto 24.1 % (20-40); MANUAL DIFF FLAG SCAN; Mean Corpuscular HGB Conc 31.8 g/dl (31.0-36.0); Mean Corpuscular Hemoglobin 25.6 pg (27.0-33.0); Mean Corpuscular Volume 80.3 fL (80.0-98.0); Mean Platelet Volume 10.1 fL (9.4-12.4); Monocytes Absolute Auto 0.6 X10*3/uL (0.1-1.2); Monocytes Percent Auto 10.8 % (2-11); NRBC Pct Auto 0.3 /100WBC (0.0-0.2); Neutrophils Absolute Auto 3.7 x10*3/uL (2.0-8.3); Neutrophils Percent Auto 62.6 % (45-73); PLT CLUMP 1; Red Blood Count 5.75 X10*6/uL (4.60-5.80); Red Cell Distribution Width 15.9 % (11.0-16.0); SCAN SMEAR FLAG 1
[2022-08-26 16:59] LABS: Alanine Aminotransferase 75 U/L (0-40); Alkaline Phosphatase 91 U/L (39-117); Anion Gap 15 (12-20); Aspartate Amino Transferase 113 U/L (5-37); Bilirubin Direct 0.2 mg/dL (0.0-0.5); Bilirubin Total 0.8 mg/dL (0.0-1.0); Blood Urea Nitrogen 22 mg/dL (9-16); Calcium 9.2 mg/dL (8.4-10.2); Carbon Dioxide 25 mmol/L (22-29); Chloride 102 mmol/L (96-108); Estimated Glomerular Filt Rate > 60; Glucose Random 115 mg/dL (60-115); Magnesium 2.2 mg/dL (1.6-2.6); Potassium 3.8 mmol/L (3.3-5.1); Sodium 138 mmol/L (135-145); Total Protein 6.5 g/dL (6.5-8.0)
[2022-08-26 17:11] LABS: COVID-19 Test Negative (Negative); IDNOW Serial# 9DB6401D
[2022-08-26 17:19] LABS: Platelet Count 113 X10*3/uL (160-400); White Blood Count 5.9 X10*3/uL (4.8-10.8)
[2022-08-26 17:20] LABS: SLIDE REVIEW VERIFIED
--- NOTE | 2022-08-26 18:46 | PC.NURSE ---
Pt reports IV Heroin use for over 20 yeas. Claims he used 8 bags this AM. No skin impairment noted.
[2022-08-26 19:38] LABS: Appearance Urine Clear; Color Urine Dark Yellow; Glucose Urine UA Negative (Negative); Leukocyte Esterase Urine Negative (Negative); Nitrite Urine Negative (Negative); Specific Gravity - Urine >= 1.030 (1.005-1.025); UMIC TRIGGER UA YES; Urine Blood Negative (Negative); Urine Ketones Trace mg/dL (Negative); Urine Protein 100 (2+) mg/dL (Neg-Trace)
[2022-08-26 19:43] LABS: Bacteria Urine None Seen (None Seen); Hyaline Casts Urine 0-2 /LPF (0-2); RBC Urine 0-2 /HPF (0-2); Squamous Epithelial Cell Urine 0-2 /HPF (0-2); WBC Urine 0-5 /HPF (0-5)
[2022-08-26 19:49] LABS: Amphetamine Screen Urine Not Detected (Not Detect); Barbiturates, Urine Not Detected (Not Detect); Benzodiazepines Screen Urine Not Detected (Not Detect); Cannabinoid Screen Urine POSITIVE (Not Detect); Cocaine Screen Urine POSITIVE (Not Detect); Fentanyl, urine POSITIVE (Not Detect); Opiate Screen Urine POSITIVE (Not Detect); Phencyclidine Screen Urine Not Detected (Not Detect)
[2022-08-26 20:41] VITALS: BP 115/57; PULSE 57; RESP 16; TEMP 36.6; O2SAT 100
--- NOTE | 2022-08-27 05:49 | PC.NURSE ---
Patient slept through the night, no distress observed/reported, behavior non concerning, ambulates independently with right prosthetic leg, care consult ordered/pending evaluation, placed on section 12 by ED provider for suicidality, med rec completed/pending provider's approval, VSS, labs completed/resulted, will continue to monitor.
[2022-08-27 06:14] VITALS: BP 118/78; PULSE 45; RESP 16; TEMP 36.2; O2SAT 99
--- NOTE | 2022-08-27 07:42 | PC.NURSE ---
pt here for si w plan to overdose intentionally using street drugs. hx of polysubstance/ivda. awaiting care team consult. pt is sleeping in bed att, rr even/unlabored. breakfast tray left at bedside. wctm for s/s withdrawal/dc needs.
[2022-08-27 09:05] VITALS: BP 127/59; PULSE 56; RESP 16; TEMP 36.9; O2SAT 97
--- NOTE | 2022-08-27 09:56 | PC.NURSE ---
evaluated by care team
--- NOTE | 2022-08-27 11:03 | MHC.CARE ---
Patient evaluated by the CARE Team to need inpatient psychiatric treatment, he is voluntary for this and not on a Section 12A. Written assessment to follow. ED provider, Dr Biggs updated
--- NOTE | 2022-08-27 15:58 | MHC.RECOVRN ---
This policy writer sales met with patient x's 2. No visible signs of withdrawal, pt resting comfortably during this writers questions. Pt resting comfortably according to ED RN. Pt reports last use [employer]INTE[employer]CE [employer] 7 bags IV heroin. Pt reports goal of abstienence, pt not interested in MAT for opiate use. Pt states would be interested in a small dose of MTD for a few days to manage withdrawal s/s . Provider Daphne Silva aware.
[2022-08-27] MEDS: LORazepam 1 MG TABLET 2 MG PO (16:53)
[2022-08-28] VITALS (7 sets, daily range): BP systolic 114–137; BP diastolic 54–85; PULSE 53–89; RESP 16; TEMP 36.6–37.1; O2SAT 98–99
--- NOTE | 2022-08-28 00:08 | ECG_ITS ---
Test Reason : cocaine use, ekg changes Blood Pressure : / mmHG Vent. Rate : 062 BPM Atrial Rate : 062 BPM P-R Int : 132 ms QRS Dur : 086 ms QT Int : 412 ms P-R-T Axes : 053 074 009 degrees QTc Int : 418 ms Normal sinus rhythm with sinus arrhythmia Normal ECG When compared with ECG of 26-AUG-2022 16:16, ST elevation now present in Anterior leads T wave inversion no longer evident in Anterior leads Referred By: Mehul Rivas Electronically Signed By:SERGIO PALACIOS MD
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
[2022-08-28] MEDS: Gabapentin 300 MG CAPSULE PO ×3 (09:14→21:07)
[2022-08-28] MEDS: cloNIDine HCL 0.1 MG TABLET PO ×3 (09:29→21:15)
[2022-08-28 10:14] LABS: Alanine Aminotransferase 50 U/L (0-40); Albumin Level 3.6 g/dL (3.5-5.0); Alkaline Phosphatase 78 U/L (39-117); Anion Gap 10 (12-20); Aspartate Amino Transferase 43 U/L (5-37); Bilirubin Total 0.6 mg/dL (0.0-1.0); Blood Urea Nitrogen 12 mg/dL (9-16); Calcium 9.1 mg/dL (8.4-10.2); Carbon Dioxide 26 mmol/L (22-29); Chloride 104 mmol/L (96-108); Cholesterol 136 mg/dL; Creatinine Clr Calc Pharmacy 141.9; Estimated Glomerular Filt Rate > 60; Glucose Fasting 113 mg/dL (60-99); HDL Cholesterol 35 mg/dL; LDL Cholesterol Calculated 84 mg/dl; Potassium 3.4 mmol/L (3.3-5.1); Sodium 137 mmol/L (135-145); Total Protein 6.3 g/dL (6.5-8.0); Triglycerides 89 mg/dL
[2022-08-28] MEDS: hydrOXYzine HCL 25 MG TABLET PO (11:51)
[2022-08-28] MEDS: Acetaminophen 325 MG TABLET 650 MG PO (11:51)
[2022-08-28] MEDS: Nicotine Polacrilex 2 MG GUM BUCCAL (11:51)
[2022-08-28] MEDS: LORazepam 1 MG TABLET PO ×3 (12:30→21:08)
[2022-08-28] MEDS: methADONE HCl 20 MG/2 ML ORAL.CONC 30 MG PO (14:29)
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
--- NOTE | 2022-08-28 16:12 | MHC.RECOVRN ---
Met with pt in 308 after pt received 30 mg methadone. Pt laying in bed, eyes closed, wakes to voice. Pt appears restless, diaphoretic. Pt reports methadone has helped but continues to feel hot/cold flashes and anxiety. Pt requesting additional methadone and to stay on it for a couple days. Denies other questions or concerns. Discussed with Daphne Silva APRN. Will continue to follow.
--- NOTE | 2022-08-28 16:27 | PM.EVENT ---
Event Note Date of Service: 08/28/22 Event Note: Addiction consult placed for patient considering suboxone Patient seen very briefly in room 508. Laying under blankets, room with a very strong odor. Patient reports feeling very sick, experiencing withdrawal sx. Visibly uncomfortable. Methadone X1 ordered. sintering plant supervisor checked in following med administration, and patient reported positive effect. However still experiencing restlessness and diaphoretic. Requesting to stay on methadone for now Plan: additional 10mg methadone tonight methadone 45mg in AM follow up in AM to obtain ABENA history and develop treatment plan with patient Time Spent With Patient Time: Total time managing care of this patient today ____ minutes.
[2022-08-28] MEDS: Loperamide HCl 2 MG CAPSULE PO (17:32)
[2022-08-28] MEDS: methADONE HCl 20 MG/2 ML ORAL.CONC 10 MG PO (17:32)
[2022-08-29 07:00] VITALS: BMI 25.0
[2022-08-29 08:00] VITALS: PULSE 76
[2022-08-29 08:42] VITALS: BP 125/60; PULSE 91; RESP 16; TEMP 36.6; O2SAT 97
[2022-08-29] MEDS: Gabapentin 300 MG CAPSULE PO ×2 (09:06→14:19)
[2022-08-29] MEDS: methADONE HCl 20 MG/2 ML ORAL.CONC 45 MG PO (09:07)
[2022-08-29] MEDS: Acetaminophen 325 MG TABLET 650 MG PO (10:12)
[2022-08-29] MEDS: Nicotine Polacrilex 2 MG GUM BUCCAL ×2 (10:13→14:31)
[2022-08-29 12:00] VITALS: BP 128/66; O2SAT 97
--- NOTE | 2022-08-29 12:46 | MHC.RECOVRN ---
Met with pt in 508 to follow up after receiving 45 mg methadone this morning. Pt laying in bed, being interviewed by SW. Pt appears less restless than yesterday, reports feeling better but still a little sweaty. Discussed plan for MOUD, pt would like to transition to Suboxone with the goal of Sublocade. Pt reports having been on Sublocade for one year and found it very helpful. Educated pt on transition from methadone to Suboxone, pt denies questions or concerns at this time. Discussed with Daphne Silva APRN.
[2022-08-29] MEDS: Buprenorphine/Naloxone 2/0.5mg FILM 0.5 FILM SUBLINGUAL (14:20)
[2022-08-29] MEDS: cloNIDine HCL 0.1 MG TABLET PO ×2 (14:31→20:58)
[2022-08-29] MEDS: hydrOXYzine HCL 25 MG TABLET PO (14:31)
[2022-08-29 16:00] VITALS: PULSE 71
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
[2022-08-29 16:20] VITALS: BP 126/60; PULSE 71; TEMP 36.8
--- NOTE | 2022-08-29 16:59 | HO.PSYCHPN ---
Subjective Subjective Date of Service: 08/29/22 Reason For Visit: si substance abuse Subjective Notes: Conditional Voluntary Healthcare Proxy: No Guardianship: No Medical Problems Affecting Mental Status: No Interim History: Met with pt who is feeling improved today with Methadone/Suboxone transition. Review of precipitants to admission, suicidality, and thoughts about his future. Reports a hx of ADHD with treatment success with Wellbutrin and Vyvanse. Review of medications-will re-start Wellbutrin, increase Gabapentin. Currently pt has a prosthesis which does not work as his knee datastage consultant is broken. Call to [facility] [address] [place] [address] . They work with pt and will send a datastage consultant to [facility] for pt to use. Discussed recent weight loss, health issues-will add Ensure, vitamins. Pt looking for assist with finding a residential program in the [facility] as he reports he believes his life to be in danger should he remain in [place]. Medication Compliance: Yes Side effects from medications: No Attending Groups: No Review of Systems Acute medical concerns: No Medical Review of Systems: unchanged Mental Status Exam Mental Status Exam Patient Appearance: Fatigued, Appropriate and Malodorous Patient Orientation: Person, Place, Time and Situation Level of Consciousness: Alert Patient Behavior: Appropriate, Talkative, Cooperative and Good Eye Contact Mood Description: Depressed Affect Description: Flat Patient Cognition Impaired: No Ability to Follow Directions: Good Speech Pattern: Spontaneous Speech Memory Description: Intact Hallucinations: None Delusions: Not Present Perceptual Disturbances: Depersonalization and Derealization Thought Process: Rumination Thought Content: positive for Perseveration and positive for Suicidal Ideation Depressive Symptoms: Hopelessness, Feelings of Guilt, Thoughts of /Suicide and Low Self Esteem Judgement: Fair Diagnostics Vital Signs (24Hr): Vital Signs - 24 hr 08/28/22 21:10 08/29/22 08:42 08/29/22 12:00 Temperature 98.1 F 97.9 F Pulse Rate 53 91 Respiratory Rate 16 Blood Pressure 114/54 L 125/60 128/66 Pulse Oximetry 97 97 Oxygen Delivery Method Room Air BMI result Body Mass Index 23.7 Labs 08/26/22 16:34 08/28/22 08:51 Labs: Laboratory Results - last 48 hr 08/28/22 08:51 Sodium 137 Potassium 3.4 Chloride 104 Carbon Dioxide 26 Anion Gap 10 L BUN 12 Creatinine 0.86 Estim Creat Clear Calc 141.9 Estimated GFR > 60 Fasting Glucose 113 H Calcium 9.1 Total Bilirubin 0.6 AST 43 H ALT 50 H Alkaline Phosphatase 78 Total Protein 6.3 L Albumin 3.6 Triglycerides 89 Cholesterol 136 LDL Cholesterol, Calc 84 HDL Cholesterol 35 Medications Medications Current Medications Acetaminophen (Acetaminophen 325 Mg Tablet) 650 mg PO Q6H PRN PRN Reason: Headache/Pain Mild Scale (1-3) Last Admin: 08/29/22 10:12 Dose: 650 mg Al Hydroxide/Mg Hydroxide (Magnesium Hydrox/Alum Hydrox 30 Ml Oral.Susp) 30 ml PO Q6H PRN PRN Reason: Heartburn/Nausea Buprenorphine/Naloxone (Buprenorphine/Naloxone 2/0.5mg Film) 1 film SUBLINGUAL ONCE ONE Stop: 08/30/22 13:01 Buprenorphine/Naloxone (Buprenorphine/Naloxone 2/0.5mg Film) 1 film SUBLINGUAL ONCE ONE Stop: 08/31/22 13:01 Buprenorphine/Naloxone (Buprenorphine/Naloxone 2/0.5mg Film) 1 film SUBLINGUAL BID@0700,1400 [facility] Stop: 09/01/22 14:01 Buprenorphine/Naloxone (Buprenorphine/Naloxone 4/1 Mg Film) 1 film SUBLINGUAL BID@0700,1300 [facility] Bupropion HCl (Bupropion Hcl Xl 150 Mg Tab.Er.24h) 150 mg PO DAILY [facility] Clonidine HCl (Clonidine Hcl 0.1 Mg Tablet) 0.1 mg PO Q4H PRN; Protocol PRN Reason: Opiate Withdrawal Last Admin: 08/29/22 14:31 Dose: 0.1 mg Gabapentin (Gabapentin 300 Mg Capsule) 600 mg PO TID [facility] Hydroxyzine HCl (Hydroxyzine Hcl 25 Mg Tablet) 25 mg PO Q6H PRN PRN Reason: Anxiety Last Admin: 08/29/22 14:31 Dose: 25 mg Loperamide HCl (Loperamide Hcl 2 Mg Capsule) 2 mg PO Q2H PRN PRN Reason: Loose Stool Last Admin: 08/28/22 17:32 Dose: 2 mg Lorazepam (Lorazepam 1 Mg Tablet) 1 mg PO Q4H PRN PRN Reason: withdrawal Last Admin: 08/28/22 21:08 Dose: 1 mg Magnesium Hydroxide (Milk Of Magnesia 30 Ml Oral.Susp) 30 ml PO DAILY PRN PRN Reason: Constipation Methadone HCl (Methadone Hcl 20 Mg/2 Ml Oral.Conc) 40 mg PO DAILY [facility] Multivitamins/Vitamin C (Multivitamin Tablet) 1 tab PO DAILY [facility] Nicotine Polacrilex (Nicotine Polacrilex 2 Mg Gum) 2 mg BUCCAL Q2H PRN PRN Reason: Nicotine Cravings Last Admin: 08/29/22 14:31 Dose: 2 mg Trazodone HCl (Trazodone Hcl 50 Mg Tablet) 50 mg PO BEDTIME MRX1 PRN PRN Reason: Insomnia Allergies Allergies Allergy/AdvReac Type Severity Reaction Status Date / Time No Known Allergies Allergy Verified 08/26/22 18:45 Assessment & Plan Assessment & Plan (1) Opioid use disorder: Status: Acute Code(s): F11.90 - Opioid use, unspecified, uncomplicated Assessment and Plan: methadone dose decreased to 40mg QD suboxone titration: today, 15: 1mg. 16: 2mg 17:2mg 18:2mg BID RN to check in on Friday, this commercial lines underwriter will see patient over the weekend to determine additional dosing (2) MDD (major depressive disorder), recurrent episode, severe: Status: Acute Code(s): F33.2 - Major depressive disorder, recurrent severe without psychotic features Assessment and Plan: Addiction consult much appreciated. Wellbutrin XL 150 mg daily Increase Gabapentin to 600 mg tid Ensure TID MVI 1 tab daily Knee datastage consultant ordered from [facility], [address] [place], [place] [address] [phone] Patient educated on: medication risk/benefits and therapeutic strategies Informed Consent: understands Reason for continued inpatient stay Substantial Risk for: harm to self and rapid decompensation Time Spent With Patient Time: Total time managing care of this patient today ____ minutes.
[2022-08-29 20:50] VITALS: BP 124/65; PULSE 68; TEMP 35.8
[2022-08-29] MEDS: traZODone HCL 50 MG TABLET PO (20:58)
[2022-08-29] MEDS: Gabapentin 300 MG CAPSULE 600 MG PO (20:59)
[2022-08-29] MEDS: LORazepam 1 MG TABLET PO (21:06)
[2022-08-30 07:59] VITALS: PULSE 62
[2022-08-30 08:03] VITALS: BP 128/62; PULSE 62; RESP 16; TEMP 36.6; O2SAT 99
[2022-08-30] MEDS: Multivitamin TABLET 1 TAB PO (08:11)
[2022-08-30] MEDS: LORazepam 1 MG TABLET PO ×2 (08:11→14:40)
[2022-08-30] MEDS: Nicotine Polacrilex 2 MG GUM BUCCAL ×3 (08:11→13:03)
[2022-08-30] MEDS: methADONE HCl 20 MG/2 ML ORAL.CONC 40 MG PO (08:11)
[2022-08-30] MEDS: buPROPion HCl XL 150 MG TAB.ER.24H PO (08:11)
[2022-08-30] MEDS: Gabapentin 300 MG CAPSULE 600 MG PO ×2 (08:11→14:40)
[2022-08-30] MEDS: cloNIDine HCL 0.1 MG TABLET PO ×2 (13:03→19:53)
[2022-08-30] MEDS: Buprenorphine/Naloxone 2/0.5mg FILM 1 FILM SUBLINGUAL (13:03)
[2022-08-30] MEDS: hydrOXYzine HCL 25 MG TABLET PO (13:03)
--- NOTE | 2022-08-30 14:50 | MHC.RECOVRN ---
Met with pt in 508 after notified pt is planning to go to a program in the [place] and can not be taking MOUD. Pt laying in bed, awake, alert, diaphoretic. Pt reports feeling okay. Pt informs t/w the plan is to go to [facility] in [place] for a 12 month recovery program. Pt reports he has never been to a program that long and is looking forward to it. Pt reports he will be transported by a friend. Discussed methadone taper, pt agreeable and verbalizes understanding. Pt encouraged to utilize comfort medications. Pt denies questions or concerns at this time.
--- NOTE | 2022-08-30 15:23 | PM.EVENT ---
Event Note Date of Service: 08/30/22 Event Note: Addiction follow up Notfied by attending provider that patient would be transitioning to a [place] based program next week and would need to taper off of all MOUD before admission. Request to taper methadone and suboxone Plan: -d/c suboxone orders -methadone taper: 08/31 and 09/01 30mg. 09/02:20mg 09/03: 10mg (last dose) -continue to offer comfort medications Time Spent With Patient Time: Total time managing care of this patient today ____ minutes.
[2022-08-30 16:00] VITALS: BP 134/61; PULSE 62; RESP 16; TEMP 36.8; O2SAT 98
--- NOTE | 2022-08-30 16:21 | HO.PSYCHPN ---
Subjective Subjective Date of Service: 08/30/22 Reason For Visit: si substance abuse Subjective Notes: Conditional Voluntary Healthcare Proxy: No Guardianship: No Medical Problems Affecting Mental Status: No Interim History: Pt has been accepted to a twelve month program in the [place] which he applied to prior to this admit. He will not be allowed to take psychotropic medication or methadone/suboxone. Daphne Silva PROCESS CONSULTANT will taper Methadone. Suboxone discontinued. Will taper Gabapentin. Will begin clonidine 0.1 mg bid and Prazosin 1 mg hs. Pt pleased with his acceptance. He received his cupola charger for his knee prosthesis this afternoon as well. Medication Compliance: Yes Side effects from medications: No Attending Groups: No Review of Systems Acute medical concerns: No Medical Review of Systems: unchanged Mental Status Exam Mental Status Exam Patient Appearance: Appropriate Patient Orientation: Person, Place, Time and Situation Level of Consciousness: Alert Patient Behavior: Appropriate, Talkative, Cooperative and Good Eye Contact Mood Description: Flat Affect Description: Flat Patient Cognition Impaired: No Ability to Follow Directions: Good Speech Pattern: Spontaneous Speech Memory Description: Intact Hallucinations: None Delusions: Not Present Perceptual Disturbances: Depersonalization and Derealization Thought Process: Rumination Thought Content: positive for Perseveration and positive for Suicidal Ideation Depressive Symptoms: Hopelessness, Feelings of Guilt, Thoughts of /Suicide and Low Self Esteem Judgement: Fair Diagnostics Vital Signs (24Hr): Vital Signs - 24 hr 08/29/22 20:50 08/30/22 08:03 Temperature 96.5 F L 97.8 F Pulse Rate 68 62 Respiratory Rate 16 Blood Pressure 124/65 128/62 Pulse Oximetry 99 Oxygen Delivery Method Room Air BMI result Body Mass Index 25.0 Labs 08/26/22 16:34 08/28/22 08:51 Medications Medications Current Medications Acetaminophen (Acetaminophen 325 Mg Tablet) 650 mg PO Q6H PRN PRN Reason: Headache/Pain Mild Scale (1-3) Last Admin: 08/29/22 10:12 Dose: 650 mg Al Hydroxide/Mg Hydroxide (Magnesium Hydrox/Alum Hydrox 30 Ml Oral.Susp) 30 ml PO Q6H PRN PRN Reason: Heartburn/Nausea Bupropion HCl (Bupropion Hcl Xl 150 Mg Tab.Er.24h) 150 mg PO DAILY [facility] Last Admin: 08/30/22 08:11 Dose: 150 mg Clonidine HCl (Clonidine Hcl 0.1 Mg Tablet) 0.1 mg PO Q4H PRN; Protocol PRN Reason: Opiate Withdrawal Last Admin: 08/30/22 13:03 Dose: 0.1 mg Clonidine HCl (Clonidine Hcl 0.1 Mg Tablet) 0.1 mg PO BID LEON[facility]; Protocol Gabapentin (Gabapentin 300 Mg Capsule) 600 mg PO TID [facility] Last Admin: 08/30/22 14:40 Dose: 600 mg Hydroxyzine HCl (Hydroxyzine Hcl 25 Mg Tablet) 25 mg PO Q6H PRN PRN Reason: Anxiety Last Admin: 08/30/22 13:03 Dose: 25 mg Loperamide HCl (Loperamide Hcl 2 Mg Capsule) 2 mg PO Q2H PRN PRN Reason: Loose Stool Last Admin: 08/28/22 17:32 Dose: 2 mg Lorazepam (Lorazepam 1 Mg Tablet) 1 mg PO Q4H PRN PRN Reason: withdrawal Last Admin: 08/30/22 14:40 Dose: 1 mg Magnesium Hydroxide (Milk Of Magnesia 30 Ml Oral.Susp) 30 ml PO DAILY PRN PRN Reason: Constipation Methadone HCl (Methadone Hcl 20 Mg/2 Ml Oral.Conc) 30 mg PO ONCE ONE Stop: 08/31/22 08:01 Methadone HCl (Methadone Hcl 20 Mg/2 Ml Oral.Conc) 30 mg PO ONCE ONE Stop: 09/01/22 08:01 Methadone HCl (Methadone Hcl 20 Mg/2 Ml Oral.Conc) 20 mg PO ONCE ONE Stop: 09/02/22 08:01 Methadone HCl (Methadone Hcl 20 Mg/2 Ml Oral.Conc) 10 mg PO ONCE ONE Stop: 09/03/22 08:01 Multivitamins/Vitamin C (Multivitamin Tablet) 1 tab PO DAILY [facility] Last Admin: 08/30/22 08:11 Dose: 1 tab Nicotine Polacrilex (Nicotine Polacrilex 2 Mg Gum) 2 mg BUCCAL Q2H PRN PRN Reason: Nicotine Cravings Last Admin: 08/30/22 13:03 Dose: 2 mg Prazosin HCl (Prazosin Hcl 1 Mg Capsule) 1 mg PO BEDTIME [facility]ON[facility]; Protocol Trazodone HCl (Trazodone Hcl 50 Mg Tablet) 50 mg PO BEDTIME MRX1 PRN PRN Reason: Insomnia Last Admin: 08/29/22 20:58 Dose: 50 mg Allergies Allergies Allergy/AdvReac Type Severity Reaction Status Date / Time No Known Allergies Allergy Verified 08/26/22 18:45 Assessment & Plan Assessment & Plan (1) Opioid use disorder: Status: Acute Code(s): F11.90 - Opioid use, unspecified, uncomplicated Assessment and Plan: methadone dose decreased to 40mg QD suboxone titration: today, 08/29: 1mg. 08/30: 2mg 08/31:2mg 09/01:2mg BID RN to check in on Friday, this database report writer will see patient over the weekend to determine additional dosing (2) MDD (major depressive disorder), recurrent episode, severe: Status: Acute Code(s): F33.2 - Major depressive disorder, recurrent severe without psychotic features Assessment and Plan: Addiction consult much appreciated. Wellbutrin XL 150 mg daily Increase Gabapentin to 600 mg tid Ensure TID MVI 1 tab daily Knee cupola charger ordered from [facility], [address] [place] [phone] 08/30/22: Discontinue Suboxone Clonidine 0.1 mg bid Prazosin 1 mg HS Methadone tapering by Daphne Silva NP Gabapentin tapering 400 mg tid 08/31, 300 mg tid 07/02, 100 mg tid 07/03 Discontinue Wellbutrin TB, Covid testing Pt is preparing for program transfer where he will not be allowed to take any psychotropic medications. Patient educated on: medication risk/benefits and therapeutic strategies Informed Consent: understands Reason for continued inpatient stay Substantial Risk for: rapid decompensation Time Spent With Patient Time: Total time managing care of this patient today ____ minutes.
[2022-08-30] MEDS: Prazosin HCL 1 MG CAPSULE PO (19:52)
[2022-08-30] MEDS: Gabapentin 400 MG CAPSULE PO (19:52)
[2022-08-30 20:00] VITALS: BP 132/68; PULSE 82; RESP 16; TEMP 36.4; O2SAT 97
[2022-08-30] MEDS: traZODone HCL 50 MG TABLET PO (20:48)
[2022-08-31 08:00] VITALS: BP 126/58; PULSE 79; RESP 16; TEMP 36.8; O2SAT 98
[2022-08-31] MEDS: cloNIDine HCL 0.1 MG TABLET PO ×3 (09:20→20:15)
[2022-08-31] MEDS: Multivitamin TABLET 1 TAB PO (09:20)
[2022-08-31] MEDS: Gabapentin 400 MG CAPSULE PO ×3 (09:20→20:15)
[2022-08-31] MEDS: methADONE HCl 20 MG/2 ML ORAL.CONC 30 MG PO (09:21)
--- NOTE | 2022-08-31 09:41 | P.PNPSI_ITS ---
Subjective Subjective Date of Service: 08/31/22 Reason For Visit: si substance abuse Interim History: Met with patient; discussed with team Patient reports he is having a challenging time due to withdrawal. Says it is very hard to stay asleep because he keeps waking up and feeling sweaty. He agrees to increasing trazodone to see if that will help; conventional mortgage underwriter reviewed risks/side effects of trazodone which patient understood and agrees with continuing. Patient said depression is lingering but he feels it is mostly situational at this point as he just had a difficult phone call with the mother of his children. Denies any SI. Discussed medications in general and patient has plans to attend a program in the [place] that does not allow a person to be on any psychiatric medications at all including mA T. Patient says he agrees with there [place] focused approach but has found Wellbutrin to be beneficial in the past and which she could be on it. He has had a history of being on Suboxone and naltrexone. 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 There is no evidence of perceptual disturbance. Patients insight and judgment appear intact. Diagnostics Vital Signs (24Hr): Vital Signs - 24 hr 08/30/22 16:00 08/30/22 20:00 Temperature 98.2 F 97.6 F Pulse Rate 62 82 Respiratory Rate 16 16 Blood Pressure 134/61 132/68 Pulse Oximetry 98 97 Oxygen Delivery Method Room Air Room Air BMI result Body Mass Index 25.0 Labs 08/26/22 16:34 08/28/22 08:51 Medications Medications Current Medications Acetaminophen (Acetaminophen 325 Mg Tablet) 650 mg PO Q6H PRN PRN Reason: Headache/Pain Mild Scale (1-3) Last Admin: 08/29/22 10:12 Dose: 650 mg Al Hydroxide/Mg Hydroxide (Magnesium Hydrox/Alum Hydrox 30 Ml Oral.Susp) 30 ml PO Q6H PRN PRN Reason: Heartburn/Nausea Clonidine HCl (Clonidine Hcl 0.1 Mg Tablet) 0.1 mg PO Q4H PRN; Protocol PRN Reason: Opiate Withdrawal Last Admin: 08/30/22 13:03 Dose: 0.1 mg Clonidine HCl (Clonidine Hcl 0.1 Mg Tablet) 0.1 mg PO BID LEONOR; Protocol Last Admin: 08/31/22 09:20 Dose: 0.1 mg Gabapentin (Gabapentin 400 Mg Capsule) 400 mg PO TID [facility] Stop: 09/01/22 07:00 Last Admin: 08/31/22 09:20 Dose: 400 mg Gabapentin (Gabapentin 300 Mg Capsule) 300 mg PO TID [facility]ON[facility] Stop: 09/02/22 07:00 Gabapentin (Gabapentin 100 Mg Capsule) 100 mg PO TID [facility]ON[facility] Stop: 09/03/22 09:00 Hydroxyzine HCl (Hydroxyzine Hcl 25 Mg Tablet) 25 mg PO Q6H PRN PRN Reason: Anxiety Last Admin: 08/30/22 13:03 Dose: 25 mg Loperamide HCl (Loperamide Hcl 2 Mg Capsule) 2 mg PO Q2H PRN PRN Reason: Loose Stool Last Admin: 08/28/22 17:32 Dose: 2 mg Magnesium Hydroxide (Milk Of Magnesia 30 Ml Oral.Susp) 30 ml PO DAILY PRN PRN Reason: Constipation Methadone HCl (Methadone Hcl 20 Mg/2 Ml Oral.Conc) 30 mg PO ONCE ONE Stop: 09/01/22 08:01 Methadone HCl (Methadone Hcl 20 Mg/2 Ml Oral.Conc) 20 mg PO ONCE ONE Stop: 09/02/22 08:01 Methadone HCl (Methadone Hcl 20 Mg/2 Ml Oral.Conc) 10 mg PO ONCE ONE Stop: 09/03/22 08:01 Multivitamins/Vitamin C (Multivitamin Tablet) 1 tab PO DAILY [facility] Last Admin: 08/31/22 09:20 Dose: 1 tab Nicotine Polacrilex (Nicotine Polacrilex 2 Mg Gum) 2 mg BUCCAL Q2H PRN PRN Reason: Nicotine Cravings Last Admin: 08/30/22 13:03 Dose: 2 mg Prazosin HCl (Prazosin Hcl 1 Mg Capsule) 1 mg PO BEDTIME [facility]ON[facility]; Protocol Last Admin: 08/30/22 19:52 Dose: 1 mg Trazodone HCl (Trazodone Hcl 50 Mg Tablet) 50 mg PO BEDTIME MRX1 PRN PRN Reason: Insomnia Last Admin: 08/30/22 20:48 Dose: 50 mg Tuberculin PPD (Tuberculin,Purif.Prot.Deriv. 5 Unit/0.1 Ml Syringe) 5 unit INTRADERMA ONCE ONE Stop: 08/31/22 09:53 Allergies Allergies Allergy/AdvReac Type Severity Reaction Status Date / Time No Known Allergies Allergy Verified 08/26/22 18:45 Assessment & Plan Assessment & Plan (1) Opioid use disorder: Status: Acute Code(s): F11.90 - Opioid use, unspecified, uncomplicated Assessment and Plan: * methadone dose decreased to 40mg QD * suboxone titration: today, 08/29: 1mg. 08/30: 2mg 08/31:2mg 09/01:2mg BID * RN to check in on Friday, this conventional mortgage underwriter will see patient over the weekend to determine additional dosing (2) MDD (major depressive disorder), recurrent episode, severe: Status: Acute Code(s): F33.2 - Major depressive disorder, recurrent severe without psychotic features Assessment and Plan: Addiction consult much appreciated. Wellbutrin XL 150 mg daily Increase Gabapentin to 600 mg tid Ensure TID MVI 1 tab daily Knee film critic ordered from [facility], [address] [place] [phone] 08/30/22: Discontinue Suboxone Clonidine 0.1 mg bid Prazosin 1 mg HS Methadone tapering by Daphne Silva NP Gabapentin tapering 400 mg tid 08/31, 300 mg tid 07/02, 100 mg tid 07/03 Discontinue Wellbutrin TB, Covid testing Pt is preparing for program transfer where he will not be allowed to take any psychotropic medications. 08/31/2022: Increase trazodone to 100 mg q.h.s. for continued insomnia; otherwise Continue current treatment plan Patient educated on: diagnosis, medication risk/benefits, substance abuse and therapeutic strategies Informed Consent: understands Reason for continued inpatient stay Substantial Risk for: stable for discharge Time Spent With Patient Time: Total time managing care of this patient today ____ minutes.
[2022-08-31 12:00] VITALS: BP 124/68; PULSE 80; RESP 16
[2022-08-31] MEDS: LORazepam 1 MG TABLET PO ×2 (12:04→18:27)
[2022-08-31] MEDS: Nicotine Polacrilex 2 MG GUM BUCCAL ×2 (15:24→18:28)
[2022-08-31 20:00] VITALS: BP 116/55; PULSE 70; TEMP 36.6; O2SAT 98
[2022-08-31] MEDS: traZODone HCL 100 MG TABLET PO (20:15)
[2022-08-31] MEDS: Prazosin HCL 1 MG CAPSULE PO (20:15)
[2022-08-31] MEDS: hydrOXYzine HCL 25 MG TABLET PO (20:15)
[2022-09-01] MEDS: LORazepam 1 MG TABLET PO ×4 (04:00→23:42)
[2022-09-01] MEDS: hydrOXYzine HCL 25 MG TABLET PO ×2 (04:01→10:54)
[2022-09-01 08:00] VITALS: BP 134/60; PULSE 60; RESP 16; TEMP 37.2
[2022-09-01] MEDS: Gabapentin 300 MG CAPSULE PO ×3 (09:28→22:01)
[2022-09-01] MEDS: cloNIDine HCL 0.1 MG TABLET PO ×2 (09:28→22:01)
[2022-09-01] MEDS: Multivitamin TABLET 1 TAB PO (09:28)
[2022-09-01] MEDS: methADONE HCl 20 MG/2 ML ORAL.CONC 30 MG PO (09:29)
--- NOTE | 2022-09-01 12:04 | HO.PSYCHPN ---
Subjective Subjective Date of Service: 09/01/22 Reason For Visit: si substance abuse Interim History: Met with patient; discussed with team Patient says that trazodone seems to have made things worse and does not want to take it. Instead he asks for Benadryl and melatonin to see if that can help. 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 There is no evidence of perceptual disturbance. Patients insight and judgment appear intact. Diagnostics Vital Signs (24Hr): Vital Signs - 24 hr 08/31/22 20:00 09/01/22 08:00 Temperature 97.9 F 99 F Pulse Rate 70 60 Respiratory Rate 16 Blood Pressure 116/55 L 134/60 Pulse Oximetry 98 Oxygen Delivery Method Room Air BMI result Body Mass Index 25.0 Labs 08/26/22 16:34 08/28/22 08:51 Medications Medications Current Medications Acetaminophen (Acetaminophen 325 Mg Tablet) 650 mg PO Q6H PRN PRN Reason: Headache/Pain Mild Scale (1-3) Last Admin: 08/29/22 10:12 Dose: 650 mg Al Hydroxide/Mg Hydroxide (Magnesium Hydrox/Alum Hydrox 30 Ml Oral.Susp) 30 ml PO Q6H PRN PRN Reason: Heartburn/Nausea Clonidine HCl (Clonidine Hcl 0.1 Mg Tablet) 0.1 mg PO Q4H PRN; Protocol PRN Reason: Opiate Withdrawal Last Admin: 08/31/22 16:24 Dose: 0.1 mg Clonidine HCl (Clonidine Hcl 0.1 Mg Tablet) 0.1 mg PO BID LEONOR; Protocol Last Admin: 09/01/22 09:28 Dose: 0.1 mg Gabapentin (Gabapentin 300 Mg Capsule) 300 mg PO TID LEONOR Stop: 09/02/22 07:00 Last Admin: 09/01/22 09:28 Dose: 300 mg Gabapentin (Gabapentin 100 Mg Capsule) 100 mg PO TID LEONOR Stop: 09/03/22 09:00 Hydroxyzine HCl (Hydroxyzine Hcl 25 Mg Tablet) 25 mg PO Q6H PRN PRN Reason: Anxiety Last Admin: 09/01/22 10:54 Dose: 25 mg Loperamide HCl (Loperamide Hcl 2 Mg Capsule) 2 mg PO Q2H PRN PRN Reason: Loose Stool Last Admin: 08/28/22 17:32 Dose: 2 mg Lorazepam (Lorazepam 1 Mg Tablet) 1 mg PO Q6H PRN PRN Reason: Anxiety Last Admin: 09/01/22 10:54 Dose: 1 mg Magnesium Hydroxide (Milk Of Magnesia 30 Ml Oral.Susp) 30 ml PO DAILY PRN PRN Reason: Constipation Methadone HCl (Methadone Hcl 20 Mg/2 Ml Oral.Conc) 20 mg PO ONCE ONE Stop: 09/02/22 08:01 Methadone HCl (Methadone Hcl 20 Mg/2 Ml Oral.Conc) 10 mg PO ONCE ONE Stop: 09/03/22 08:01 Multivitamins/Vitamin C (Multivitamin Tablet) 1 tab PO DAILY [facility]ON[facility] Last Admin: 09/01/22 09:28 Dose: 1 tab Nicotine Polacrilex (Nicotine Polacrilex 2 Mg Gum) 2 mg BUCCAL Q2H PRN PRN Reason: Nicotine Cravings Last Admin: 08/31/22 18:28 Dose: 2 mg Prazosin HCl (Prazosin Hcl 1 Mg Capsule) 1 mg PO BEDTIME LEONOR; Protocol Last Admin: 08/31/22 20:15 Dose: 1 mg Trazodone HCl (Trazodone Hcl 100 Mg Tablet) 100 mg PO BEDTIME PRN PRN Reason: Insomnia Last Admin: 08/31/22 20:15 Dose: 100 mg Allergies Allergies Allergy/AdvReac Type Severity Reaction Status Date / Time No Known Allergies Allergy Verified 08/26/22 18:45 Assessment & Plan Assessment & Plan (1) Opioid use disorder: Status: Acute Code(s): F11.90 - Opioid use, unspecified, uncomplicated Assessment and Plan: methadone dose decreased to 40mg QD suboxone titration: today, 15: 1mg. /16: 2mg 17:2mg 18:2mg BID RN to check in on Friday, this bond underwriter will see patient over the weekend to determine additional dosing (2) MDD (major depressive disorder), recurrent episode, severe: Status: Acute Code(s): F33.2 - Major depressive disorder, recurrent severe without psychotic features Assessment and Plan: Addiction consult much appreciated. Wellbutrin XL 150 mg daily Increase Gabapentin to 600 mg tid Ensure TID MVI 1 tab daily Knee rn surgical pcu ordered from [facility], [address] [place] [place] [phone] 08/30/22: Discontinue Suboxone Clonidine 0.1 mg bid Prazosin 1 mg HS Methadone tapering by Daphne Silva NP Gabapentin tapering 400 mg tid 08/31, 300 mg tid 07/02, 100 mg tid 07/03 Discontinue Wellbutrin TB, Covid testing Pt is preparing for program transfer where he will not be allowed to take any psychotropic medications. 08/31/2022: Increase trazodone to 100 mg q.h.s. for continued insomnia; otherwise Continue current treatment plan 09/01/2022: Patient says trazodone seems to have made sleep worse; asks for Benadryl melatonin which was ordered. Considering naltrexone prescription to take with him as a backup in case he needs it. Patient educated on: diagnosis, medication risk/benefits and substance abuse Informed Consent: understands Reason for continued inpatient stay Substantial Risk for: rapid decompensation Time Spent With Patient Time: Total time managing care of this patient today ____ minutes.
[2022-09-01] MEDS: Magnesium Hydrox/Alum Hydrox 30 ML ORAL.SUSP PO (17:11)
[2022-09-01 21:55] VITALS: BP 120/58; PULSE 62; TEMP 36.5; O2SAT 98
[2022-09-01] MEDS: Prazosin HCL 1 MG CAPSULE PO (22:01)
[2022-09-01] MEDS: diphenhydrAMINE HCL 25 MG CAPSULE 50 MG PO (22:01)
[2022-09-01] MEDS: Melatonin 3 MG TABLET PO (22:01)
[2022-09-02] MEDS: LORazepam 1 MG TABLET PO ×3 (06:14→20:01)
[2022-09-02 08:00] VITALS: PULSE 76
[2022-09-02 08:39] VITALS: BP 123/62; PULSE 70; RESP 16; TEMP 36.7; O2SAT 99
[2022-09-02] MEDS: methADONE HCl 20 MG/2 ML ORAL.CONC PO (08:41)
[2022-09-02] MEDS: Gabapentin 100 MG CAPSULE PO ×3 (08:41→20:02)
[2022-09-02] MEDS: cloNIDine HCL 0.1 MG TABLET PO ×2 (08:41→21:31)
[2022-09-02] MEDS: Multivitamin TABLET 1 TAB PO (08:41)
[2022-09-02 12:00] VITALS: BP 118/68; PULSE 72; RESP 16; TEMP 36.7; O2SAT 96
[2022-09-02] MEDS: Nicotine Polacrilex 2 MG GUM BUCCAL (12:25)
[2022-09-02 14:37] LABS: COVID-19 Test Negative (Negative); IDNOW Serial# BCCEAD1C
[2022-09-02] MEDS: QUEtiapine Fumarate 50 MG TABLET PO (15:10)
--- NOTE | 2022-09-02 16:05 | P.PNPSI_ITS ---
Subjective Subjective Date of Service: 09/02/22 Reason For Visit: si substance abuse Subjective Notes: Conditional Voluntary Healthcare Proxy: No Guardianship: No Medical Problems Affecting Mental Status: No Interim History: I am OK, it is the anxiety and insomnia that are tough. Tapering of meds is going without event pt reports with anxiety and insomnia as the main issues. Discussed Seroquel prn trial which he agrees to-50 mg tid prn and 100 mg hs prn. Discussed upcoming program in [place]. Friends have been trying to convince him to go since 2018. Discussed his course of recovery, relapse. States he does well with sobriety, feels well, can adapt to a schedule, work, achieve goals, then one day his mood will drop for 1-2 days. He then will have an elevation then dive again. Discusse d Bipolar Spectrum I and II. Relapse risk is in the down period, heroin helps to improve his mood. Discussed the program he has chosen, their not allowing psychotropics and current biological research on mood disorders. Pt verbalized awareness and wants to trial for the year and will most likely pursue psychopharmacology upon completion. Medication Compliance: Yes Side effects from medications: No Attending Groups: Intermittent Review of Systems Acute medical concerns: No Medical Review of Systems: unchanged Mental Status Exam Mental Status Exam Patient Appearance: Appropriate Patient Orientation: Person, Place, Time and Situation Level of Consciousness: Alert Patient Behavior: Talkative and Good Eye Contact Mood Description: Appropriate and Anxious Affect Description: Appropriate and Anxious Patient Cognition Impaired: No Ability to Follow Directions: Good Speech Pattern: Spontaneous Speech Memory Description: Intact Hallucinations: None Delusions: Not Present Thought Process: Intact and Goal Oriented Thought Content: positive for Intact and positive for Goal Oriented Depressive Symptoms: Increased Anxiety Judgement: Good Diagnostics Vital Signs (24Hr): Vital Signs - 24 hr 09/01/22 21:55 09/02/22 08:39 09/02/22 12:00 Temperature 97.7 F 98.1 F 98.1 F Pulse Rate 62 70 72 Respiratory Rate 16 16 Blood Pressure 120/58 L 123/62 118/68 Pulse Oximetry 98 99 96 Oxygen Delivery Method Room Air Room Air Room Air BMI result Body Mass Index 25.0 Labs 08/26/22 16:34 08/28/22 08:51 Labs: Laboratory Results - last 48 hr 09/02/22 13:56 COVID-19 ([facility]EVE) Negative COVID-19 Clin Com See Note Medications Medications Current Medications Acetaminophen (Acetaminophen 325 Mg Tablet) 650 mg PO Q6H PRN PRN Reason: Headache/Pain Mild Scale (1-3) Last Admin: 08/29/22 10:12 Dose: 650 mg Al Hydroxide/Mg Hydroxide (Magnesium Hydrox/Alum Hydrox 30 Ml Oral.Susp) 30 ml PO Q6H PRN PRN Reason: Heartburn/Nausea Last Admin: 09/01/22 17:11 Dose: 30 ml Clonidine HCl (Clonidine Hcl 0.1 Mg Tablet) 0.1 mg PO Q4H PRN; Protocol PRN Reason: Opiate Withdrawal Last Admin: 08/31/22 16:24 Dose: 0.1 mg Clonidine HCl (Clonidine Hcl 0.1 Mg Tablet) 0.1 mg PO BID LEONOR; Protocol Last Admin: 09/02/22 08:41 Dose: 0.1 mg Diphenhydramine HCl (Diphenhydramine Hcl 25 Mg Capsule) 50 mg PO BEDTIME PRN PRN Reason: Insomnia Last Admin: 09/01/22 22:01 Dose: 50 mg Gabapentin (Gabapentin 100 Mg Capsule) 100 mg PO TID [facility] Stop: 09/03/22 09:00 Last Admin: 09/02/22 15:10 Dose: 100 mg Hydroxyzine HCl (Hydroxyzine Hcl 25 Mg Tablet) 25 mg PO Q6H PRN PRN Reason: Anxiety Last Admin: 09/01/22 10:54 Dose: 25 mg Loperamide HCl (Loperamide Hcl 2 Mg Capsule) 2 mg PO Q2H PRN PRN Reason: Loose Stool Last Admin: 08/28/22 17:32 Dose: 2 mg Lorazepam (Lorazepam 1 Mg Tablet) 1 mg PO Q6H PRN PRN Reason: Anxiety Last Admin: 09/02/22 12:25 Dose: 1 mg Magnesium Hydroxide (Milk Of Magnesia 30 Ml Oral.Susp) 30 ml PO DAILY PRN PRN Reason: Constipation Melatonin (Melatonin 3 Mg Tablet) 3 mg PO BEDTIME [facility] Last Admin: 09/01/22 22:01 Dose: 3 mg Methadone HCl (Methadone Hcl 20 Mg/2 Ml Oral.Conc) 10 mg PO ONCE ONE Stop: 09/03/22 08:01 Multivitamins/Vitamin C (Multivitamin Tablet) 1 tab PO DAILY [facility] Last Admin: 09/02/22 08:41 Dose: 1 tab Nicotine Polacrilex (Nicotine Polacrilex 2 Mg Gum) 2 mg BUCCAL Q2H PRN PRN Reason: Nicotine Cravings Last Admin: 09/02/22 12:25 Dose: 2 mg Prazosin HCl (Prazosin Hcl 1 Mg Capsule) 1 mg PO BEDTIME [facility]ONOR; Protocol Last Admin: 09/01/22 22:01 Dose: 1 mg Quetiapine Fumarate (Quetiapine Fumarate 50 Mg Tablet) 50 mg PO TID PRN PRN Reason: anxiety, agitation Last Admin: 09/02/22 15:10 Dose: 50 mg Quetiapine Fumarate (Quetiapine Fumarate 100 Mg Tablet) 100 mg PO BEDTIME PRN PRN Reason: Insomnia Allergies Allergies Allergy/AdvReac Type Severity Reaction Status Date / Time No Known Allergies Allergy Verified 08/26/22 18:45 Assessment & Plan Assessment & Plan (1) Opioid use disorder: Status: Acute Code(s): F11.90 - Opioid use, unspecified, uncomplicated Assessment and Plan: * methadone dose decreased to 40mg QD * suboxone titration: today, 08/29: 1mg. 08/30: 2mg 08/31:2mg 09/01:2mg BID * RN to check in on Friday, this brief writer will see patient over the weekend to determine additional dosing (2) MDD (major depressive disorder), recurrent episode, severe: Status: Acute Code(s): F33.2 - Major depressive disorder, recurrent severe without psychotic features Assessment and Plan: Addiction consult much appreciated. 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 08/31/2022: Increase trazodone to 100 mg q.h.s. for continued insomnia; otherwi se Continue current treatment plan 09/01/2022: Patient says trazodone seems to have made sleep worse; asks for Benadryl melatonin which was ordered. Considering naltrexone prescription to take with him as a backup in case he needs it. 09/02/22: Seroquel 50 mg tid prn anxiety. Seroquel 100 mg hs prn insomnia. Patient educated on: medication risk/benefits and therapeutic strategies Informed Consent: understands Reason for continued inpatient stay Substantial Risk for: rapid decompensation Time Spent With Patient Time: Total time managing care of this patient today ____ minutes.
[2022-09-02] MEDS: Acetaminophen 325 MG TABLET 650 MG PO (19:59)
[2022-09-02 21:20] VITALS: BP 106/51; PULSE 84; TEMP 36.3
[2022-09-02] MEDS: Melatonin 3 MG TABLET PO (21:29)
[2022-09-02] MEDS: Prazosin HCL 1 MG CAPSULE PO (21:32)
[2022-09-03 08:37] VITALS: BP 120/62; PULSE 78; RESP 16; TEMP 36.8; O2SAT 98
[2022-09-03 08:44] VITALS: PULSE 78
[2022-09-03] MEDS: LORazepam 1 MG TABLET PO ×2 (08:50→17:59)
[2022-09-03] MEDS: cloNIDine HCL 0.1 MG TABLET PO ×3 (08:50→20:01)
[2022-09-03] MEDS: Multivitamin TABLET 1 TAB PO (08:50)
[2022-09-03] MEDS: Gabapentin 100 MG CAPSULE PO (08:50)
[2022-09-03] MEDS: methADONE HCl 20 MG/2 ML ORAL.CONC 10 MG PO (08:51)
[2022-09-03 09:04] LABS: Estimated Average Glucose 97 mg/dL
--- NOTE | 2022-09-03 09:14 | HO.PSYCHPN ---
Subjective Subjective Date of Service: 09/03/22 Reason For Visit: si substance abuse Subjective Notes: Conditional Voluntary Healthcare Proxy: No Guardianship: No Medical Problems Affecting Mental Status: No Interim History: Pt reports Seroquel has been helpful for sleep and for decrease of racing thoughts. He would like to continue the prn. Call to pt's friend Yfn [phone] with [facility]. Yfn reflects that he believes pt is agreeable to [facility] as he sees himself having less options for care home recovery. Discussed the issue of not having an ID. Yfn reports pt's mother may be able to help out with an license or passport. He will contact us if this is an option. [place] will have a bed on 09/05/22-pt would need to be at the program on 09/08/22 at the latest to begin. If not he will need to wait another month. Discussed ID options-[employer] tells [facility] that he does not need ID to travel. Pt will need TB test, physical exam results, COVID results for the program. Medication Compliance: Yes Side effects from medications: No Attending Groups: Intermittent Review of Systems Acute medical concerns: No Medical Review of Systems: unchanged Mental Status Exam Mental Status Exam Patient Appearance: Appropriate Patient Orientation: Person, Place, Time and Situation Level of Consciousness: Alert Patient Behavior: Talkative and Good Eye Contact Mood Description: Appropriate and Anxious Affect Description: Appropriate and Anxious Patient Cognition Impaired: No Ability to Follow Directions: Good Speech Pattern: Spontaneous Speech Memory Description: Intact Hallucinations: None Delusions: Not Present Thought Process: Intact and Goal Oriented Thought Content: positive for Intact and positive for Goal Oriented Depressive Symptoms: Increased Anxiety Judgement: Good Diagnostics Vital Signs (24Hr): Vital Signs - 24 hr 09/02/22 12:00 09/02/22 21:20 09/03/22 08:37 Temperature 98.1 F 97.3 F 98.2 F Pulse Rate 72 84 78 Respiratory Rate 16 16 Blood Pressure 118/68 106/51 L 120/62 Pulse Oximetry 96 98 Oxygen Delivery Method Room Air Room Air BMI result Body Mass Index 25.0 Labs 08/26/22 16:34 08/28/22 08:51 Labs: Laboratory Results - last 48 hr 09/02/22 09/03/22 13:56 08:31 Estimat Average Glucose 97 Hemoglobin A1c % 5.0 COVID-19 (STEVE) Negative COVID-19 Clin Com See Note Medications Medications Current Medications Acetaminophen (Acetaminophen 325 Mg Tablet) 650 mg PO Q6H PRN PRN Reason: Headache/Pain Mild Scale (1-3) Last Admin: 09/02/22 19:59 Dose: 650 mg Al Hydroxide/Mg Hydroxide (Magnesium Hydrox/Alum Hydrox 30 Ml Oral.Susp) 30 ml PO Q6H PRN PRN Reason: Heartburn/Nausea Last Admin: 09/01/22 17:11 Dose: 30 ml Clonidine HCl (Clonidine Hcl 0.1 Mg Tablet) 0.1 mg PO Q4H PRN; Protocol PRN Reason: Opiate Withdrawal Last Admin: 08/31/22 16:24 Dose: 0.1 mg Clonidine HCl (Clonidine Hcl 0.1 Mg Tablet) 0.1 mg PO BID LEONOR; Protocol Last Admin: 09/03/22 08:50 Dose: 0.1 mg Diphenhydramine HCl (Diphenhydramine Hcl 25 Mg Capsule) 50 mg PO BEDTIME PRN PRN Reason: Insomnia Last Admin: 09/01/22 22:01 Dose: 50 mg Hydroxyzine HCl (Hydroxyzine Hcl 25 Mg Tablet) 25 mg PO Q6H PRN PRN Reason: Anxiety Last Admin: 09/01/22 10:54 Dose: 25 mg Loperamide HCl (Loperamide Hcl 2 Mg Capsule) 2 mg PO Q2H PRN PRN Reason: Loose Stool Last Admin: 08/28/22 17:32 Dose: 2 mg Lorazepam (Lorazepam 1 Mg Tablet) 1 mg PO Q6H PRN PRN Reason: Anxiety Last Admin: 09/03/22 08:50 Dose: 1 mg Magnesium Hydroxide (Milk Of Magnesia 30 Ml Oral.Susp) 30 ml PO DAILY PRN PRN Reason: Constipation Melatonin (Melatonin 3 Mg Tablet) 3 mg PO BEDTIME [facility] Last Admin: 09/02/22 21:29 Dose: 3 mg Multivitamins/Vitamin C (Multivitamin Tablet) 1 tab PO DAILY [facility] Last Admin: 09/03/22 08:50 Dose: 1 tab Nicotine Polacrilex (Nicotine Polacrilex 2 Mg Gum) 2 mg BUCCAL Q2H PRN PRN Reason: Nicotine Cravings Last Admin: 09/02/22 12:25 Dose: 2 mg Prazosin HCl (Prazosin Hcl 1 Mg Capsule) 1 mg PO BEDTIME [facility]; Protocol Last Admin: 09/02/22 21:32 Dose: 1 mg Quetiapine Fumarate (Quetiapine Fumarate 50 Mg Tablet) 50 mg PO TID PRN PRN Reason: anxiety, agitation Last Admin: 09/02/22 15:10 Dose: 50 mg Quetiapine Fumarate (Quetiapine Fumarate 100 Mg Tablet) 100 mg PO BEDTIME PRN PRN Reason: Insomnia Allergies Allergies Allergy/AdvReac Type Severity Reaction Status Date / Time No Known Allergies Allergy Verified 08/26/22 18:45 Assessment & Plan Assessment & Plan (1) Opioid use disorder: Status: Acute Code(s): F11.90 - Opioid use, unspecified, uncomplicated Assessment and Plan: methadone dose decreased to 40mg QD suboxone titration: today, 08/29: 1mg. 08/30: 2mg 08/31:2mg 09/01:2mg BID RN to check in on Friday, this senior medical writer will see patient over the weekend to determine additional dosing (2) MDD (major depressive disorder), recurrent episode, severe: Status: Acute Code(s): F33.2 - Major depressive disorder, recurrent severe without psychotic features Assessment and Plan: Addiction consult much appreciated. 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 [place], [place] [phone] 08/30/22: Discontinue Suboxone Clonidine 0.1 mg bid Prazosin 1 mg HS Methadone tapering by Daphne Silva NP Gabapentin tapering 400 mg tid 08/31, 300 mg tid 07/02, 100 mg tid 07/03 Discontinue Wellbutrin TB, Covid testing Pt is preparing for program transfer where he will not be allowed to take any psychotropic medications. 08/31/2022: Increase trazodone to 100 mg q.h.s. for continued insomnia; otherwise Continue current treatment plan 09/01/2022: Patient says trazodone seems to have made sleep worse; asks for Benadryl melatonin which was ordered. Considering naltrexone prescription to take with him as a backup in case he needs it. 09/02/22: Seroquel 50 mg tid prn anxiety. Seroquel 100 mg hs prn insomnia. 09/03/22: Continue current regime. Patient educated on: medication risk/benefits and therapeutic strategies Informed Consent: understands Reason for continued inpatient stay Substantial Risk for: rapid decompensation Time Spent With Patient Time: Total time managing care of this patient today ____ minutes.
[2022-09-03 09:44] LABS: Thyroid Stimulating Hormone 1.77 uIU/mL (0.32-4.0)
[2022-09-03 09:55] LABS: Folate 8.7 ng/mL (> or = 4.0); Vitamin B12 580 pg/mL (200-900)
[2022-09-03 12:00] VITALS: BP 130/63; PULSE 65; RESP 16; TEMP 36.8; O2SAT 98
[2022-09-03] MEDS: QUEtiapine Fumarate 50 MG TABLET PO (14:26)
[2022-09-03 16:08] VITALS: BP 115/56; PULSE 72; TEMP 36.4; O2SAT 96
--- NOTE | 2022-09-03 16:13 | PC.NURSE ---
late entry: on 08/28/2022 @ 12:30pm 1mg Ativan PO was administered based on a COWS score of 20. The medication was effective per pt report.
[2022-09-03 19:47] VITALS: BP 115/56; PULSE 57; TEMP 36.1
[2022-09-03] MEDS: hydrOXYzine HCL 25 MG TABLET PO (20:00)
[2022-09-03] MEDS: Melatonin 3 MG TABLET PO (20:00)
[2022-09-03] MEDS: QUEtiapine Fumarate 100 MG TABLET PO (20:01)
[2022-09-03] MEDS: Prazosin HCL 1 MG CAPSULE PO (20:01)
[2022-09-04 08:00] VITALS: BP 120/62; PULSE 62; RESP 16; TEMP 36.7; O2SAT 98
[2022-09-04 08:26] VITALS: PULSE 62
[2022-09-04] MEDS: LORazepam 1 MG TABLET PO ×3 (08:31→20:05)
[2022-09-04] MEDS: Multivitamin TABLET 1 TAB PO (08:31)
[2022-09-04] MEDS: QUEtiapine Fumarate 50 MG TABLET PO ×2 (08:31→14:24)
[2022-09-04] MEDS: cloNIDine HCL 0.1 MG TABLET PO ×3 (08:31→20:05)
--- NOTE | 2022-09-04 10:20 | P.PNPSI_ITS ---
Subjective Subjective Date of Service: 09/04/22 Reason For Visit: si substance abuse Subjective Notes: Conditional Voluntary Healthcare Proxy: No Guardianship: No Medical Problems Affecting Mental Status: No Interim History: Preparing for transfer to [facility] program in [place]. Will discharge on 09/06. Team has made arrangements with him and worked out intricate details for successful transition. Message left for pt's mother to discuss the plan and assess if she has concerns. Pt is pleased with this plan, stating, my friends and family have wanted me to do this since 2018. Medication Compliance: Yes Side effects from medications: No Attending Groups: Intermittent Review of Systems Acute medical concerns: No Medical Review of Systems: unchanged Mental Status Exam Mental Status Exam Patient Appearance: Appropriate Patient Orientation: Person, Place, Time and Situation Level of Consciousness: Alert Patient Behavior: Talkative and Good Eye Contact Mood Description: Appropriate and Anxious Affect Description: Appropriate and Anxious Patient Cognition Impaired: No Ability to Follow Directions: Good Speech Pattern: Spontaneous Speech Memory Description: Intact Hallucinations: None Delusions: Not Present Thought Process: Intact and Goal Oriented Thought Content: positive for Intact and positive for Goal Oriented Depressive Symptoms: Increased Anxiety Judgement: Good Diagnostics Vital Signs (24Hr): Vital Signs - 24 hr 09/03/22 12:00 09/03/22 16:08 09/03/22 19:47 Temperature 98.2 F 97.6 F 96.9 F Pulse Rate 65 72 57 Respiratory Rate 16 Blood Pressure 130/63 115/56 L 115/56 L Pulse Oximetry 98 96 Oxygen Delivery Method Room Air Room Air 09/04/22 08:00 Temperature 98.1 F Pulse Rate 62 Respiratory Rate 16 Blood Pressure 120/62 Pulse Oximetry 98 Oxygen Delivery Method Room Air BMI result Body Mass Index 25.0 Labs 08/26/22 16:34 08/28/22 08:51 Labs: Laboratory Results - last 48 hr 09/02/22 09/03/22 09/03/22 13:56 08:31 08:31 Estimat Average Glucose 97 Hemoglobin A1c % 5.0 Total Creatine Kinase 108 Vitamin B12 Folate TSH 1.77 COVID-19 ([facility]EVE) Negative COVID-19 Clin Com See Note 09/03/22 08:31 Estimat Average Glucose Hemoglobin A1c % Total Creatine Kinase Vitamin B12 580 Folate 8.7 TSH COVID-19 (STEVE) COVID-19 Clin Com Medications Medications Current Medications Acetaminophen (Acetaminophen 325 Mg Tablet) 650 mg PO Q6H PRN PRN Reason: Headache/Pain Mild Scale (1-3) Last Admin: 09/02/22 19:59 Dose: 650 mg Al Hydroxide/Mg Hydroxide (Magnesium Hydrox/Alum Hydrox 30 Ml Oral.Susp) 30 ml PO Q6H PRN PRN Reason: Heartburn/Nausea Last Admin: 09/01/22 17:11 Dose: 30 ml Clonidine HCl (Clonidine Hcl 0.1 Mg Tablet) 0.1 mg PO Q4H PRN; Protocol PRN Reason: Opiate Withdrawal Last Admin: 09/03/22 16:13 Dose: 0.1 mg Clonidine HCl (Clonidine Hcl 0.1 Mg Tablet) 0.1 mg PO BID LEONOR; Protocol Last Admin: 09/04/22 08:31 Dose: 0.1 mg Diphenhydramine HCl (Diphenhydramine Hcl 25 Mg Capsule) 50 mg PO BEDTIME PRN PRN Reason: Insomnia Last Admin: 09/01/22 22:01 Dose: 50 mg Hydroxyzine HCl (Hydroxyzine Hcl 25 Mg Tablet) 25 mg PO Q6H PRN PRN Reason: Anxiety Last Admin: 09/03/22 20:00 Dose: 25 mg Loperamide HCl (Loperamide Hcl 2 Mg Capsule) 2 mg PO Q2H PRN PRN Reason: Loose Stool Last Admin: 08/28/22 17:32 Dose: 2 mg Lorazepam (Lorazepam 1 Mg Tablet) 1 mg PO Q6H PRN PRN Reason: Anxiety Last Admin: 09/04/22 08:31 Dose: 1 mg Magnesium Hydroxide (Milk Of Magnesia 30 Ml Oral.Susp) 30 ml PO DAILY PRN PRN Reason: Constipation Melatonin (Melatonin 3 Mg Tablet) 3 mg PO BEDTIME [facility] Last Admin: 09/03/22 20:00 Dose: 3 mg Multivitamins/Vitamin C (Multivitamin Tablet) 1 tab PO DAILY [facility] Last Admin: 09/04/22 08:31 Dose: 1 tab Nicotine Polacrilex (Nicotine Polacrilex 2 Mg Gum) 2 mg BUCCAL Q2H PRN PRN Reason: Nicotine Cravings Last Admin: 09/02/22 12:25 Dose: 2 mg Prazosin HCl (Prazosin Hcl 1 Mg Capsule) 1 mg PO BEDTIME [facility]ON[facility]; Protocol Last Admin: 09/03/22 20:01 Dose: 1 mg Quetiapine Fumarate (Quetiapine Fumarate 50 Mg Tablet) 50 mg PO TID PRN PRN Reason: anxiety, agitation Last Admin: 09/04/22 08:31 Dose: 50 mg Quetiapine Fumarate (Quetiapine Fumarate 100 Mg Tablet) 100 mg PO BEDTIME PRN PRN Reason: Insomnia Last Admin: 09/03/22 20:01 Dose: 100 mg Allergies Allergies Allergy/AdvReac Type Severity Reaction Status Date / Time No Known Allergies Allergy Verified 08/26/22 18:45 Assessment & Plan Assessment & Plan (1) Opioid use disorder: Status: Acute Code(s): F11.90 - Opioid use, unspecified, uncomplicated Assessment and Plan: * methadone dose decreased to 40mg QD * suboxone titration: today, 08/29: 1mg. 08/30: 2mg 08/31:2mg 09/01:2mg BID * RN to check in on Friday, this sign writer hand will see patient over the weekend to determine additional dosing (2) MDD (major depressive disorder), recurrent episode, severe: Status: Acute Code(s): F33.2 - Major depressive disorder, recurrent severe without psychotic features Assessment and Plan: Addiction consult much appreciated. Wellbutrin XL 150 mg daily Increase Gabapentin to 600 mg tid Ensure TID MVI 1 tab daily Knee holter technician ordered from [facility], [address] [place] [phone] 08/30/22: Discontinue Suboxone Clonidine 0.1 mg bid Prazosin 1 mg HS Methadone tapering by Daphne Silva NP Gabapentin tapering 400 mg tid 08/31, 300 mg tid 07/02, 100 mg tid 07/03 Discontinue Wellbutrin TB, Covid testing Pt is preparing for program transfer where he will not be allowed to take any psychotropic medications. 08/31/2022: Increase trazodone to 100 mg q.h.s. for continued insomnia; otherwise Continue current treatment plan 09/01/2022: Patient says trazodone seems to have made sleep worse; asks for Benadryl melatonin which was ordered. Considering naltrexone prescription to take with him as a backup in case he needs it. 09/02/22: Seroquel 50 mg tid prn anxiety. Seroquel 100 mg hs prn insomnia. 09/03/22: Continue current regime. 09/04/22: Continue current plan of care. Informed Consent: understands Reason for continued inpatient stay Substantial Risk for: rapid decompensation Time Spent With Patient Time: Total time managing care of this patient today ____ minutes.
[2022-09-04] MEDS: Nicotine Polacrilex 2 MG GUM BUCCAL ×2 (11:33→14:24)
[2022-09-04 13:55] VITALS: BP 122/64; PULSE 72; RESP 16; TEMP 36.8; O2SAT 98
--- NOTE | 2022-09-04 15:40 | PC.NURSE ---
PPD administered 09/02/22 @ 13:49. Reading performed 09/04/22 @ 14:36 indicates 0 induration, redness, or irritation
[2022-09-04 15:47] LABS: TS Negative Control Passed; TS Panel A 1; TS Panel B 2; TS Positive Control Passed; TSpotTB Negative (Negative)
[2022-09-04 17:30] VITALS: BP 125/63; PULSE 94; TEMP 37
[2022-09-04 20:03] VITALS: BP 128/59; PULSE 62; TEMP 36.6
[2022-09-04] MEDS: Prazosin HCL 1 MG CAPSULE PO (20:05)
[2022-09-04] MEDS: Melatonin 3 MG TABLET PO (20:05)
[2022-09-04] MEDS: QUEtiapine Fumarate 100 MG TABLET PO (20:07)
[2022-09-05 07:00] VITALS: BMI 25.3
[2022-09-05 08:00] VITALS: BP 123/60; PULSE 62; RESP 18; TEMP 36.7; O2SAT 97
[2022-09-05] MEDS: LORazepam 1 MG TABLET PO ×2 (08:38→19:13)
[2022-09-05] MEDS: Multivitamin TABLET 1 TAB PO (08:38)
[2022-09-05] MEDS: cloNIDine HCL 0.1 MG TABLET PO ×3 (08:38→19:13)
--- NOTE | 2022-09-05 12:02 | P.PNPSI_ITS ---
Subjective Subjective Date of Service: 09/05/22 Reason For Visit: si substance abuse Subjective Notes: Conditional Voluntary Healthcare Proxy: No Guardianship: No Medical Problems Affecting Mental Status: No Interim History: Plan of care discussed with pt's mother Mariana Bailey [phone] who is approving of this and believes family friends in [place] are giving pt good sound advice regarding the [facility]. Mariana has purchased his bus ticket and will pick pt up at 4:30 pm 09/06 to transport him. Pt reports apprehension, but relief to have made this commitment to attend the program for a year. Medication Compliance: Yes Side effects from medications: No Attending Groups: Intermittent Review of Systems Acute medical concerns: No Medical Review of Systems: unchanged Mental Status Exam Mental Status Exam Patient Appearance: Appropriate Patient Orientation: Person, Place, Time and Situation Level of Consciousness: Alert Patient Behavior: Talkative and Good Eye Contact Mood Description: Appropriate and Anxious Affect Description: Appropriate and Anxious Patient Cognition Impaired: No Ability to Follow Directions: Good Speech Pattern: Spontaneous Speech Memory Description: Intact Hallucinations: None Delusions: Not Present Thought Process: Intact and Goal Oriented Thought Content: positive for Intact and positive for Goal Oriented Depressive Symptoms: Increased Anxiety Judgement: Good Diagnostics Vital Signs (24Hr): Vital Signs - 24 hr 09/04/22 13:55 09/04/22 17:30 09/04/22 20:03 Temperature 98.2 F 98.6 F 97.9 F Pulse Rate 72 94 62 Respiratory Rate 16 Blood Pressure 122/64 125/63 128/59 L Pulse Oximetry 98 Oxygen Delivery Method Room Air 09/05/22 08:00 Temperature 98.0 F Pulse Rate 62 Respiratory Rate 18 Blood Pressure 123/60 Pulse Oximetry 97 Oxygen Delivery Method Room Air BMI result Body Mass Index 25.3 Labs 08/26/22 16:34 08/28/22 08:51 Labs: Laboratory Results - last 48 hr 09/02/22 16:07 TB Test (T-Spot) Com Negative TB Test Nil Control Passed TB Test Panel A 1 TB Test Panel B 2 TB Test Positive Cntrl Passed Medications Medications Current Medications Acetaminophen (Acetaminophen 325 Mg Tablet) 650 mg PO Q6H PRN PRN Reason: Headache/Pain Mild Scale (1-3) Last Admin: 09/02/22 19:59 Dose: 650 mg Al Hydroxide/Mg Hydroxide (Magnesium Hydrox/Alum Hydrox 30 Ml Oral.Susp) 30 ml PO Q6H PRN PRN Reason: Heartburn/Nausea Last Admin: 09/01/22 17:11 Dose: 30 ml Clonidine HCl (Clonidine Hcl 0.1 Mg Tablet) 0.1 mg PO Q4H PRN; Protocol PRN Reason: Opiate Withdrawal Last Admin: 09/04/22 17:34 Dose: 0.1 mg Clonidine HCl (Clonidine Hcl 0.1 Mg Tablet) 0.1 mg PO BID LEONOR; Protocol Last Admin: 09/05/22 08:38 Dose: 0.1 mg Diphenhydramine HCl (Diphenhydramine Hcl 25 Mg Capsule) 50 mg PO BEDTIME PRN PRN Reason: Insomnia Last Admin: 09/01/22 22:01 Dose: 50 mg Hydroxyzine HCl (Hydroxyzine Hcl 25 Mg Tablet) 25 mg PO Q6H PRN PRN Reason: Anxiety Last Admin: 09/03/22 20:00 Dose: 25 mg Loperamide HCl (Loperamide Hcl 2 Mg Capsule) 2 mg PO Q2H PRN PRN Reason: Loose Stool Last Admin: 08/28/22 17:32 Dose: 2 mg Lorazepam (Lorazepam 1 Mg Tablet) 1 mg PO Q6H PRN PRN Reason: Anxiety Last Admin: 09/05/22 08:38 Dose: 1 mg Magnesium Hydroxide (Milk Of Magnesia 30 Ml Oral.Susp) 30 ml PO DAILY PRN PRN Reason: Constipation Melatonin (Melatonin 3 Mg Tablet) 3 mg PO BEDTIME LEONOR Last Admin: 09/04/22 20:05 Dose: 3 mg Multivitamins/Vitamin C (Multivitamin Tablet) 1 tab PO DAILY LEONOR Last Admin: 09/05/22 08:38 Dose: 1 tab Nicotine Polacrilex (Nicotine Polacrilex 2 Mg Gum) 2 mg BUCCAL Q2H PRN PRN Reason: Nicotine Cravings Last Admin: 09/04/22 14:24 Dose: 2 mg Prazosin HCl (Prazosin Hcl 1 Mg Capsule) 1 mg PO BEDTIME LEONOR; Protocol Last Admin: 09/04/22 20:05 Dose: 1 mg Quetiapine Fumarate (Quetiapine Fumarate 50 Mg Tablet) 50 mg PO TID PRN PRN Reason: anxiety, agitation Last Admin: 09/04/22 14:24 Dose: 50 mg Quetiapine Fumarate (Quetiapine Fumarate 100 Mg Tablet) 100 mg PO BEDTIME PRN PRN Reason: Insomnia Last Admin: 09/04/22 20:07 Dose: 100 mg Allergies Allergies Allergy/AdvReac Type Severity Reaction Status Date / Time No Known Allergies Allergy Verified 08/26/22 18:45 Assessment & Plan Assessment & Plan (1) Opioid use disorder: Status: Acute Code(s): F11.90 - Opioid use, unspecified, uncomplicated Assessment and Plan: * methadone dose decreased to 40mg QD * suboxone titration: today, 08/29: 1mg. 08/30: 2mg 08/31:2mg 09/01:2mg BID * RN to check in on Friday, this promotion writer will see patient over the weekend to de termine additional dosing (2) MDD (major depressive disorder), recurrent episode, severe: Status: Acute Code(s): F33.2 - Major depressive disorder, recurrent severe without psychotic features Assessment and Plan: Addiction consult much appreciated. Wellbutrin XL 150 mg daily Increase Gabapentin to 600 mg tid Ensure TID MVI 1 tab daily Knee cement cutter ordered from [facility], [address] [place] [phone] 08/30/22: Discontinue Suboxone Clonidine 0.1 mg bid Prazosin 1 mg HS Methadone tapering by Daphne Silav NP Gabapentin tapering 400 mg tid 08/31, 300 mg tid 07/02, 100 mg tid 07/03 Discontinue Wellbutrin TB, Covid testing Pt is preparing for program transfer where he will not be allowed to take any psychotropic medications. 08/31/2022: Increase trazodone to 100 mg q.h.s. for continued insomnia; ot rey Continue current treatment plan 09/01/2022: Patient says trazodone seems to have made sleep worse; asks for Benadryl melatonin which was ordered. Considering naltrexone prescription to take with him as a backup in case he needs it. 09/02/22: Seroquel 50 mg tid prn anxiety. Seroquel 100 mg hs prn insomnia. 09/03/22: Continue current regime. 09/05/22: Discharge 09/06/22. Informed Consent: understands Reason for continued inpatient stay Substantial Risk for: stable for discharge Time Spent With Patient Time: Total time managing care of this patient today ____ minutes.
[2022-09-05] MEDS: Nicotine Polacrilex 2 MG GUM BUCCAL (14:31)
[2022-09-05] MEDS: hydrOXYzine HCL 25 MG TABLET PO (19:13)
[2022-09-05] MEDS: Prazosin HCL 1 MG CAPSULE PO (19:13)
[2022-09-05] MEDS: QUEtiapine Fumarate 100 MG TABLET PO (19:13)
[2022-09-05] MEDS: Melatonin 3 MG TABLET PO (19:14)
[2022-09-05 19:22] VITALS: BP 120/58; PULSE 67
[2022-09-05] MEDS: QUEtiapine Fumarate 50 MG TABLET PO (19:36)
[2022-09-06 08:00] VITALS: PULSE 68
[2022-09-06 08:40] VITALS: BP 126/68; PULSE 68; RESP 18; TEMP 36.6; O2SAT 98
[2022-09-06] MEDS: cloNIDine HCL 0.1 MG TABLET PO (09:30)
[2022-09-06] MEDS: Nicotine Polacrilex 2 MG GUM BUCCAL ×2 (09:30→14:16)
--- NOTE | 2022-09-06 13:58 | PM.PSYDC ---
DS: Providers Provider Date of Service: 09/06/22 Date of admission: 08/27/22 20:57 Date of discharge: 09/06/22 Primary care physician: Unknown Physician Admitting clinician: Ally Love Attending physician on admission: Mehul Rivas Consults: 08/28/22 12:02 Addiction Medicine Routine Consulting Provider: Addiction Covering Reason for consultation: Pt would like to consider Suboxone Has provider been notified: No Attending physician on discharge: Mehul Rivas Discharging clinician: Gosia Stone DS: Diagnosis Discharge Diagnosis (1) Opioid use disorder: Status: Acute (2) MDD (major depressive disorder), recurrent episode, severe: Status: Acute DS: Medications Discharge Medications Home Medications: Previous Rx's Medication Instructions Recorded clonidine HCl 0.1 mg tablet 0.1 mg PO BID #14 tabs 09/05/22 melatonin 3 mg tablet 3 mg PO BEDTIME #7 tabs 09/05/22 multivitamin (Daily-Rosalind tablet) 1 tab PO DAILY #30 tabs 09/05/22 prazosin 1 mg capsule 1 mg PO BEDTIME #7 caps 09/05/22 quetiapine 50 mg tablet 50 mg PO TID PRN anxiety, 09/05/22 agitation #10 tabs Mental Status Exam Mental Status Exam Patient Appearance: Appropriate Patient Orientation: Person, Place, Time and Situation Level of Consciousness: Alert Patient Behavior: Talkative and Good Eye Contact Mood Description: Appropriate and Anxious Affect Description: Appropriate and Anxious Patient Cognition Impaired: No Ability to Follow Directions: Good Speech Pattern: Spontaneous Speech Memory Description: Intact Hallucinations: None Delusions: Not Present Thought Process: Intact and Goal Oriented Thought Content: positive for Intact and positive for Goal Oriented Depressive Symptoms: Increased Anxiety Judgement: Good Data Data Completed and Pending Completed studies during hospitalization [Text1]: 09/02/22 09/02/22 09/03/22 13:56 16:07 08:31 Estimat Average Glucose 97 Hemoglobin A1c % 5.0 Total Creatine Kinase Vitamin B12 Folate TSH COVID-19 (STEVE) Negative COVID-19 Clin Com See Note TB Test (T-Spot) Com Negative TB Test Nil Control Passed TB Test Panel A 1 TB Test Panel B 2 TB Test Positive Cntrl Passed 09/03/22 09/03/22 08:31 08:31 Estimat Average Glucose Hemoglobin A1c % Total Creatine Kinase 108 Vitamin B12 580 Folate 8.7 TSH 1.77 COVID-19 (STEVE) COVID-19 Clin Com TB Test (T-Spot) Com TB Test Nil Control TB Test Panel A TB Test Panel B TB Test Positive Cntrl DS: Summary Hospital Course Hospital Course: Admission to adult psychiatry for exacerbation of recurrent major depression, polysubstance use diosrder with relapse, SI, and homelessness. Pt's medications were evaluated and adjusted. He participated in milieu and utilized the milieu to begin to clarify his decision making. Pt has a strong network of family and friends. They have been encouraging him to attend a year long program called [facility], which is in [place]. Pt agreed to attend. Team, family, friends assisted in making arrangements. Medications were limited and some tapered, as [facility] will not allow the clients to utilize psychotropic medications. Pt left via bus and will begin the program upon his arrival. Time spent discussing smoking cessation with patient: 3 to 10 minutes Status at Discharge Functional status at discharge: independent ambulation Overall status at discharge: patient is progressing back to baseline Time Spent with Patient Time attestation: Total time managing care of this patient today ____ minutes. Time spent: Greater than 30 minutes Discharge Plan Discharge Anticipated Discharge Date/Time: 09/06/22 16:30 Patient Disposition: Xfer Other Discharge Diagnosis: Recurrent Major Depression Polysubstance Use Disorder Referrals: [facility] [Other] - 09/08/22 10:00 am (Patient accepted to [facility] for Substance use treatment Patient to transition to program and being in 09/08/22.) Physician,Unknown J [Primary Care Provider] - 1 Week Discharge Medications: New multivitamin [Daily-Rosalind] Tablet 1 tab PO DAILY Qty: 30 0RF clonidine HCl 0.1 mg Tablet 0.1 mg PO BID Qty: 14 0RF Protocol: Hold for SBP< HOLD for SBP < : 90 prazosin 1 mg Capsule 1 mg PO BEDTIME Qty: 7 0RF Protocol: Hold for SBP< HOLD for SBP < : 90 melatonin 3 mg Tablet 3 mg PO BEDTIME Qty: 7 0RF quetiapine 50 mg Tablet 50 mg PO TID PRN (Reason: anxiety, agitation) Qty: 10 0RF Discontinued bupropion HCl 75 mg tablet 150 mg PO BID gabapentin 300 mg capsule 300 mg PO TID Discharge Orders: Discharge Order (Routine); Ordered 09/06/22 Ordered By: Gosia Stone Diet: Advance to usual diet Activity on Discharge: As tolerated Stand Alone Forms: Patient Portal Discharge page, Community Support Care Plan Goals: Mood and Behavioral Stabilization Work on Sobriety Health Concerns: Mood and Behavioral Stabilization Work on Sobriety Plan of Treatment: Ash will attend [facility] beginning on 09/08/22 in [place]. Assessment: Pt interviewed prior to discharge and found to be fully oriented and without SI/HI Pt has insight and demonstrates good judgment in terms of wanting to pursue treatment. Pt is not in imminent risk of harm to self or others and has a safety plan that includes presenting to the closest ER or calling 911 if feeling unsafe. Pt has been observed closely by nursing and unit staff throughout admission. Pt has not engaged in any behaviors that suggest dangerousness to self or others and has demonstrated appropriate behaviors and impulse control. Discharge Date/Time: 09/06/22 16:20
== END 2022-09-06 16:20 | disposition other institution (70) | DRG 751 ==
LOC: HO.ED 17:55 → HO.PM5 08-27 21:20
PROVIDERS: Physician Assistant; Psychiatry & Neurology Psychiatry; Admitting Provider Psychiatry & Neurology Psychiatry; Emergency Provider Emergency Medicine; Visit Provider Clinical Nurse Specialist Psychiatric/Mental Health, Adult
DX: F33.2 Major depressive disorder, recurrent severe without psychotic features (principal); R45.851 Suicidal ideations; Z89.611 Acquired absence of right leg above knee; F19.10 Other psychoactive substance abuse, uncomplicated; Z20.822 Contact with and (suspected) exposure to COVID-19; Z59.02 Unsheltered homelessness; Z79.899 Other long term (current) drug therapy
CPT/HCPCS: 36415; 80048; 80053; 80061; 80076; 80307; 81001; 82550; 82607; 82746; 83036; 83735; 84443; 85025; 86481; 87635; 93005; 99285; S9485

== ENCOUNTER → 2022-08-27 20:57 | Outpatient (BNV) | payer OTHER, SELFPAY | PROVIDERS: Admitting Provider Psychiatry & Neurology Psychiatry; Emergency Provider Emergency Medicine; Visit Provider Nurse Practitioner Psychiatric/Mental Health | DX: F11.90 Opioid use, unspecified, uncomplicated (principal); F33.2 Major depressive disorder, recurrent severe without psychotic features | CPT/HCPCS: 99231; 99232; 99233; 99499 ==